=== PATIENT | female | born 1950 | race Caucasian/White ===

== ENCOUNTER → 2017-09-29 14:42 | Outpatient (CLI) | payer MEDICARE, OTHER, SELFPAY ==
[2017-10-01 12:11] LABS: HPV Reflexed? NOT INDICATED
== END ==
PROVIDERS: Family Provider Family Medicine; PCP Family Medicine; Visit Provider Family Medicine
DX: Z01.419 Encounter for gynecological examination (general) (routine) without abnormal findings (principal)
CPT/HCPCS: 88175; G0145

== ENCOUNTER → 2018-08-31 14:22 | Outpatient (CLI) | payer MEDICARE, OTHER, SELFPAY ==
--- NOTE | 2018-08-31 15:07 | CT_ITS ---
STUDY: CT ABDOMEN AND PELVIS WITH CONTRAST REASON FOR EXAM: Female, 68 years old. 2 week history of abdominal pain and bloating. The patient has a history of breast cancer. RADIATION DOSAGE (If Supplied By Facility): CTDIvol = ( 12.84 ) mGy, DLP = ( 756.45 ) mGycm TECHNIQUE: Transaxial images were obtained from the dome of the diaphragm to the symphysis pubis with oral contrast. 100 IV/Oral Isovue 370 was administered. Sagittal and coronal images were reconstructed. Individualized dose optimization techniques were used for this CT. COMPARISON: None. FINDINGS: The visualized lung bases are unremarkable. The visualized portions of the heart are within normal limits. There is decreased attenuation of the liver consistent with steatosis. Normal gallbladder and extrahepatic biliary system. Normal spleen. Normal pancreas. Normal bilateral adrenal glands. Normal right kidney. 1.2 cm cyst in the midportion of the left kidney. Smaller cysts are also seen in the left kidney. There is a small hiatal hernia. Normal small intestine. There are multiple colonic diverticula consistent with diverticulosis. The appendix is visualized and appears normal. There is scattered atherosclerotic calcification of the abdominal aorta, without a demonstrated aneurysm. Normal inferior vena cava. Normal retroperitoneum. Normal urinary bladder. There is evidence of a 3.5 cm x 4.7 cm fat-containing mass in the right ovary. Mild degree of increased markings is seen in the surrounding fat. This may represent a teratoma. Correlation with pelvic ultrasound is recommended. There is evidence of prior bilateral tubal ligation. Normal abdominal wall. There are diffuse degenerative changes of the visualized lumbar spine. CT/Abdomen/Pelvis WITH Contrast IMPRESSION: 3.5 cm x 4.7 cm fat-containing mass in the right ovary. This may represent a teratoma. Correlation with pelvic ultrasound is recommended. Fatty infiltration of the liver. Small cysts in the left kidney. Electronically Signed: Michael Atkins, at 13:09 EDT , Service support ,
== END ==
PROVIDERS: Family Provider Family Medicine; PCP Family Medicine; Referring Provider Family Medicine; Visit Provider Family Medicine
DX: R10.9 Unspecified abdominal pain (principal)
CPT/HCPCS: 74177; Q9967

== ENCOUNTER → 2018-09-08 13:54 | Outpatient (CLI) | payer MEDICARE, OTHER, SELFPAY ==
--- NOTE | 2018-09-08 13:59 | US_ITS ---
STUDY: ULTRASOUND OF THE FEMALE PELVIS - COMPLETE REASON FOR EXAM: Female, 68 years old. Right ovarian lesion LMP: Unknown. TECHNIQUE: Transabdominal and Transvaginal TECHNICAL QUALITY: Adequate. COMPARISON: CT scan from 08/31/2018 FINDINGS: The uterus is anteverted and is in a midline position. The uterus measures 7.0 x 4.7 x 4.8 cm. Normal uterine cervix. The endometrium measures 3 mm in thickness, and is hyperechoic. There is no demonstrated endometrial mass. There is a 2.9 cm fibroid. I.U.D. - The patient does not have an I.U.D. The right ovary is visualized. The right ovary measures 2.1 x 1.5 x 0.9 cm. There is no right ovarian cyst or ovarian mass. There is no visualized right adnexal mass or complex lesion. There is normal arterial and normal venous vascularity. The left ovary is visualized. The left ovary measures 1.8 x 2.1 x 1.2 cm. There is no left ovarian cyst or ovarian mass. There is no visualized left adnexal mass or complex lesion. There is normal arterial and normal venous vascularity. There is no fluid in the cul-de-sac. The bladder is sonographically normal US/Pelvic (Non ) IMPRESSION: 2.9 cm mass in the posterior body of the uterus, likely represents a fibroid. Previously noted fat-containing mass in the right ovary not seen on current study. No demonstrated free fluid Electronically Signed: Graeme Upotn MD at 15:33 EDT , Service support ,
--- NOTE | 2018-09-08 14:17 | US_ITS ---
STUDY: ULTRASOUND OF THE FEMALE PELVIS - COMPLETE REASON FOR EXAM: Female, 68 years old. Right ovarian lesion LMP: Unknown. TECHNIQUE: Transabdominal and Transvaginal TECHNICAL QUALITY: Adequate. COMPARISON: CT scan from 08/31/2018 FINDINGS: The uterus is anteverted and is in a midline position. The uterus measures 7.0 x 4.7 x 4.8 cm. Normal uterine cervix. The endometrium measures 3 mm in thickness, and is hyperechoic. There is no demonstrated endometrial mass. There is a 2.9 cm fibroid. I.U.D. - The patient does not have an I.U.D. The right ovary is visualized. The right ovary measures 2.1 x 1.5 x 0.9 cm. There is no right ovarian cyst or ovarian mass. There is no visualized right adnexal mass or complex lesion. There is normal arterial and normal venous vascularity. The left ovary is visualized. The left ovary measures 1.8 x 2.1 x 1.2 cm. There is no left ovarian cyst or ovarian mass. There is no visualized left adnexal mass or complex lesion. There is normal arterial and normal venous vascularity. There is no fluid in the cul-de-sac. The bladder is sonographically normal US/Transvaginal Non- IMPRESSION: 2.9 cm mass in the posterior body of the uterus, likely represents a fibroid. Previously noted fat-containing mass in the right ovary not seen on current study. No demonstrated free fluid Electronically Signed: Graeme Upton MD at 15:33 EDT , Service support ,
== END ==
PROVIDERS: Family Provider Family Medicine; PCP Family Medicine; Referring Provider Family Medicine; Visit Provider Family Medicine
DX: N83.9 Noninflammatory disorder of ovary, fallopian tube and broad ligament, unspecified (principal)
CPT/HCPCS: 76830; 76856; 93976

== ENCOUNTER 2020-07-07 05:26 | Inpatient (IN) | payer MEDICARE, OTHER, SELFPAY ==
[2020-07-07] VITALS (27 sets, daily range): BP systolic 102–163; BP diastolic 52–121; PULSE 79–95; RESP 11–22; TEMP 36–36.6; O2SAT 94–99; BMI 27.6; BMI 30.4; BMI 30.5
--- NOTE | 2020-07-07 05:40 | EKG12_ITS ---
Test Reason : CP Blood Pressure : / mmHG Vent. Rate : 087 BPM Atrial Rate : 087 BPM P-R Int : 192 ms QRS Dur : 074 ms QT Int : 394 ms P-R-T Axes : 033 -21 068 degrees QTc Int : 474 ms Normal sinus rhythm Minimal voltage criteria for LVH, may be normal variant T wave abnormality, consider anterior ischemia Abnormal ECG Confirmed by JESSY RODRIGUEZ, FREDDY ([id number]), editor at large OFE BLACKMAN ([id number]) on 07/09/2020 11:30:03 AM Referred By: Lupe Downey Confirmed By:FREDDY JIMÉNEZ MD
--- NOTE | 2020-07-07 05:41 | ED.DCSUM_ITS ---
History of Present Illness Chief Complaint: Chest Pain Informant: Patient Onset: Days - Worse this morning Current Severity: - - Resolved Maximum Severity: Moderate Narrative: Patient presents secondary to chest pain. Patient states has been having intermittent chest pain for the past couple of days. She initially was taking omeprazole and thought that was helping. This morning she was awoken from sleep with spasm in the center portion of her chest with radiation into her back. She took one of her husbands nitroglycerin and that resolved her pain. Patient denies shortness of breath or diaphoresis. Patient does have history of hypertension, high cholesterol, diabetes. She has family history of heart disease. She has never had a stress test or heart cath. - Past Medical History (1) Hypertension Status: Chronic (2) High cholesterol Status: Chronic (3) Diabetes Status: Chronic Past Medical History - Allergies and Home Meds Allergies/Adverse Reactions: Allergies atorvastatin [From Lipitor] Adverse Reaction (Mild, Verified 07/07/20 05:30) nausea lovastatin Adverse Reaction (Verified 07/07/20 05:30) nausea rosuvastatin [From Crestor] Adverse Reaction (Verified 07/07/20 05:30) nausea simvastatin [Zocor] Adverse Reaction (Verified 07/07/20 05:30) nausea Primary Care Physician: Karin Burns MD [Primary Care Provider] - Lives: Spouse/ Significant Other Smoking Status: Never smoker Review of Systems General: Denies: Chills, Fever Eyes: Denies: Visual changes - bilaterally ENT: Denies: Bilateral ear pain, Sore throat Cardiovascular: Reports: Chest pain Respiratory: Denies: Dyspnea, Cough Gastrointestinal: Denies: Abdominal pain, Nausea, Vomiting, Diarrhea Genitourinary: Denies: Dysuria Musculoskeletal: Denies: Swelling, Extremity Pain Skin: Denies: Rash Neurological: Denies: Headache Hematologic: Denies: Easy bruising, Easy bleeding Allergy: Denies: Uticaria Physical Exam Vital Signs/Narrative: Vital Signs Temp Pulse Resp BP Pulse Ox 07/07/20 05:27 96.8 F L 83 18 163/78 H 97 Inital Vital Signs reviewed: Yes General: Well nourished, Well developed Head: Normocephalic ENT: Moist mucous membranes Neck: Supple Cardiovascular: Regular rate, Regular rhythm Respiratory: No distress, CTA bilaterally, Chest nontender Abdomen: Soft, Nontender Extremities: Nontender Skin: Normal color, No rash Neurological: Alert, Oriented x3 Psychological: Normal affect Diagnostic/Tx/Re-eval Chest X-Ray - ED: 1 View, Read by ED Physician, Normal, Heart, Lungs, Mediastinum Impressions Chest X-Ray 07/07/20 05:50 IMPRESSION: Heterogeneous bilateral basilar airspace disease suggests multifocal pneumonia. Electronically Signed: Natalie Kaye MD at 6:12 EST , Service support , 07/07/20 05:50 Chest 1 View (Portable) [RAD] Stat Laboratory Results 07/07/20 07/07/20 05:33 05:33 WBC 7.5 RBC 4.88 Hgb 14.2 Hct 43.7 MCV 89.5 MCH 29.1 MCHC 32.5 RDW Std Deviation 40.0 RDW Coeff of Aaron 12.2 Plt Count 225 MPV 10.5 Immature Gran % (Auto) 0.300 Neut % (Auto) 51.7 Lymph % (Auto) 36.5 [place] % (Auto) 7.7 Eos % (Auto) 3.3 Baso % (Auto) 0.5 Absolute Neuts (auto) 3.9 Absolute Lymphs (auto) 2.75 Nucleated RBC % 0 Sodium 133 L Potassium 3.6 Chloride 96 L Carbon Dioxide 32.0 Anion Gap 5 BUN 23 H Creatinine 0.97 Estim Creat Clear Calc 42.47 Est GFR (MDRD) Af Amer 73 Est GFR (MDRD) Non-Af 60 BUN/Creatinine Ratio 23.6 H Glucose 328 H Calcium 9.6 Troponin I 0.556 H - EKG Initial EKG Interpretation: Sinus Rhythm - Sinus 87. Mild biphasic T waves are noted in lead V2 and V3. Q waves are noted in leads III, aVF, and V1. No old studies are available for comparison. - Medical Decision Making Patient had taken 1 baby aspirin prior to bed and was given 3 additional baby as pirin here. Patient remained chest pain-free while in the emergency room. Portable chest x- ray per my interpretation reveals no significant findings. Radiologist read is for possible multifocal pneumonia. Patient has had no cough, shortness of breath, or elevated white count. Covid swab will be sent. Blood work does reveal elevated troponin at 0.556. In light of this I did speak with Dr. Downey, on-call for cardiology. The EKG was sent to him for review. He states that because the patient is chest pain-free currently he will not take her to the [facility] immediately. He would like her admitted to the ICU with a heparin drip, aspirin, and Plavix. Patient has an allergy to statins and cannot take those. Hospitalist is on page. Addendum: While still in the emergency room patient stated she was started to get some chest pressure back. She is rating her pain at a 2. 1 sublingual nitro is ordered. Repeat EKG at this time shows sinus rhythm at 85 bpm. This EKG was also sent to Dr. Gutierrez. Because the patient is having recurrent pain he will call in the [facility] team and patient will go from here to the [facility]. - Critical Care Time Critical care time (excluding procedures): 30-74 minutes ED Disposition - Plan for ED Patient: Disposition: Acute Care Hospital [facility] Diagnosis: Chest pain, Elevated troponin Referrals: Karin Burns MD [Primary Care Provider] -
[2020-07-07] MEDS: Aspirin 81 MG TAB.CHEW 243 MG PO (05:44)
[2020-07-07 05:46] LABS: Absolute Lymphocyte Count 2.75 X10^3/uL (0.83-4.51); Absolute Neutrophil Count 3.9 X10^3/uL (2.0-7.7); Basophil# 0.04 X10^3/uL; Basophil% 0.5 % (0-1); Eosinophil# 0.25 X10^3/uL; Eosinophils% 3.3 % (0-5); Hematocrit 43.7 % (37-47); Hemoglobin 14.2 g/dL (12.0-15.0); Lymphocyte # 2.75 X10^3/ul (4.0); Lymphocyte % 36.5 % (19-41); Mean Corp Hgb Conc 32.5 g/dL (32-36); Mean Corpuscular Hgb 29.1 pg (27.0-32.0); Mean Corpuscular Volume 89.5 fL (81-99); Mean Platelet Vol. 10.5 fl (6.2-12.0); Monocyte# 0.58 X10^3/uL; Monocyte% 7.7 % (0-10); NRBC Flagged by Analyzer 0 % (0-5); Neutrophil # 3.89 X10^3/uL (2.7-7.7); Neutrophil % 51.7 % (47-70); Platelet Count 225 K/mm3 (150-450); RBC Distribution Width CV 12.2 % (11.6-14.6); Red Blood Count 4.88 M/mm3 (4.2-5.4); White Blood Count 7.5 K/mm3 (4.4-11.0)
--- NOTE | 2020-07-07 05:50 | RAD_ITS ---
STUDY: X-RAY CHEST REASON FOR EXAM: Female, 69 years old patient with chest pain. TECHNIQUE: Single AP portable view of the chest. COMPARISON: Prior comparable comparison studies are not available for review at this time. FINDINGS: Cardiac monitoring leads are present. The lungs are underexpanded. There appear to be bilateral heterogeneous airspace consolidations suggesting pneumonia. There is no demonstrated pleural abnormality. Normal size heart. Normal mediastinum and jose. Normal visualized pulmonary arteries. There is atherosclerotic calcification of the aortic arch with tortuosity. Normal visualized thoracic spine. Normal visualized ribs, clavicles, and shoulders. There is no demonstrated abnormality of the visualized soft tissue structures of the upper abdomen. RAD/Chest 1 View (Portable) IMPRESSION: Heterogeneous bilateral basilar airspace disease suggests multifocal pneumonia. Electronically Signed: Natalie Kaye MD at 6:12 EST , Service support ,
[2020-07-07 06:00] LABS: Anion Gap 5 (5-15); BUN 23 mg/dL (7-18); BUN/Creat Ratio 23.6 RATIO (10-20); Calcium,Total 9.6 mg/dL (8.5-10.1); Chloride 96 mmol/L (98-107); Creatinine, Serum 0.97 mg/dL (0.55-1.02); EST Glomerular Filtration Rate 60 mL/min (>60); Est Glom Filt Rate - Afr Amer 73 mL/min (>60); Estimated Creatinine Clearance 42.47 ml/min; Glucose 328 mg/dL (74-106); Potassium 3.6 mmol/L (3.5-5.1); Sodium Level 133 mmol/L (136-145)
[2020-07-07] MEDS: Clopidogrel Bisulfate 300 MG Tablet PO ×2 (06:21→07:32)
[2020-07-07 06:28] LABS: Partial Thromboplast Time 28.7 Seconds (24.1-36.2)
[2020-07-07] MEDS: HEPARIN/D5w 25,000 UNITS 25,000 UNITS/250 ML IV.SOLN. 0.1 UNITS IV (06:33)
[2020-07-07] MEDS: Heparin Injection (Vial) 5,000 UNIT/ML VIAL 4000 UNIT IV (06:33)
--- NOTE | 2020-07-07 06:36 | NURSING ---
ICU CP, ELEVATED TROP DR SOLIS
--- NOTE | 2020-07-07 06:50 | EKG12_ITS ---
Test Reason : REPEAT Blood Pressure : / mmHG Vent. Rate : 085 BPM Atrial Rate : 085 BPM P-R Int : 202 ms QRS Dur : 070 ms QT Int : 374 ms P-R-T Axes : 031 -25 079 degrees QTc Int : 445 ms Normal sinus rhythm Possible Left atrial enlargement Left ventricular hypertrophy Septal infarct , age undetermined Inferior infarct , age undetermined Abnormal ECG Confirmed by JESSY RODRIGUEZ, FREDDY ([id number]), research editor OFE BLACKMAN ([id number]) on 07/09/2020 11:30:38 AM Referred By: Lupe Downey Confirmed By:FREDDY JIMÉNEZ MD
[2020-07-07] MEDS: Nitroglycerin SL (ED/IMG/CATH) 0.4 MG TABLET SUBLINGUAL (07:08)
--- NOTE | 2020-07-07 07:09 | HP.PCM_ITS ---
Problem List (1) Non-ST elevation AR (NSTEMI) Status: Acute (2) Chest pain Status: Acute (3) Diabetes Status: Chronic (4) High cholesterol Status: Chronic (5) Hypertension Status: Chronic History of Present Illness Date of Admission: 07/07/20 Chief Complaint: Chest pain The patient is a 69 year old F with a significant history of hypertension; diabetes mellitus; hyperlipidemia who presents to the emergency department with excruciating substernal chest pain that woke her up from her sleep. Her chest pain began on the same day of presentation. She described the chest pain as heaviness. She took one of her 's nitroglycerin pills and that resolved her chest pain. Her chest pain radiated to her back. She denies any aggravating factors to the pain. She denies any nausea, vomiting, diaphoresis or shortness of breath. She report that her chest pain has been going on for 2 to 3 days; and she was getting relief from Prilosec. At emergency department EKG showed biphasic T waves in leads V1 and V2. Also troponin was elevated. Emergency department doctor discussed the case with cardiology. The plan was to consider a cardiac cath on 07/08/2020. However patient chest pain re-occurred. A repeat EKG was done. Nitroglycerin paste was ordered. Cardiology was contacted again and the plan is to take patient to the cardiac cath right away. Past Medical History Past Medical History (Chronic Problems): Chronic Problems Hypertension (Chronic) High cholesterol (Chronic) Diabetes (Chronic) Allergies atorvastatin [From Lipitor] Adverse Reaction (Mild, Verified 07/07/20 05:30) nausea lovastatin Adverse Reaction (Verified 07/07/20 05:30) nausea rosuvastatin [From Crestor] Adverse Reaction (Verified 07/07/20 05:30) nausea simvastatin [Zocor] Adverse Reaction (Verified 07/07/20 05:30) nausea Home Medications: Ambulatory Orders Medication Instructions Recorded Aspirin [Aspirin, Baby] 81 mg PO DAILY@0800 10/24/13 Citalopram [Celexa] 20 mg PO DAILY 10/24/13 Hydrochlorothiazide 25 mg PO DAILY 10/24/13 Insulin Glargine [Lantus SoloStar 50 units SC QHS 10/24/13 Pen] Lisinopril [Zestril] 5 mg PO DAILY 10/24/13 Insulin Lispro [Humalog] 25 unit SQ DAILY 07/07/20 Surgical History: - - Lumpectomy of breast Lives: Spouse/ Significant Other Smoking Status: Never smoker - *Family History Maternal History Items: Heart Disease, Hypertension Paternal History Items: - - Arthritis Review of Systems Constitutional: Denies: Chills, Fever, Weight Change HEENT: Denies: Head Aches, Sinus Congestion, Sinus Drainage Cardiovascular: Reports: Chest Pain. Denies: Palpitations Respiratory: Denies: Cough, Shortness of breath at rest, Sputum production Gastrointestinal: Denies: Abdominal Pain, Nausea, Vomiting Genitourinary: Denies: Dysuria Musculoskeletal: Reports: Back Pain. Denies: Joint Pain, Joint Tenderness Skin: Denies: Rash, Wounds Neurological: Denies: Numbness, Tingling, Focal weakness Psychiatric: Denies: Anxiety, Depression, Homicidal Ideations, Suicidal Ideations Hematologic/ Lymphatic: Denies: Easy Bruising, Easy Bleeding VTE Information - Inpt Only VTE Present on Admission: No VTE Mechan Device Prophylaxis: None VTE Pharm Prophylaxis ordered?: No Reason prophylaxis not ordered:: Treatment Not Indicated - Given Heparin bolus and started on heparin drip for non-STEMI at the ED. Patient Problems: Active and Suspected Problems Chest pain (Acute) Non-ST elevation AR (NSTEMI) (Acute) - Physical Exam Vitals/I&O's: Vital Signs Temp Pulse Resp BP Pulse Ox 96.8 F L 83 18 163/78 H 97 07/07/20 05:27 07/07/20 05:27 07/07/20 05:27 07/07/20 05:27 07/07/20 05:27 Oxygen Delivery Method Room Air Weight: 66.2 kg Body Mass Index (BMI) 27.6 General: Alert, Oriented x3, Cooperative HEENT: Atraumatic, PERRLA, EOMI, Normocephalic Neck: Supple, No JVD, Negative Carotid Bruits Lungs: Clear to auscultation, Normal air movement Cardiovascular: Regular rate, Normal S1, Normal S2, No murmurs Abdomen: Bowel Sounds Present, Soft, Non Tender Extremities: No edema, Capillary Refill Less than 3 Seconds Skin: No rashes, No breakdown Musculoskeletal: No Tenderness to Palpation of Joints or Extremities Neurological: Cranial nerves II-XII grossly intact Psych/Mental Status: Normal Affect, Appropriate Microbiology Past 72 Hours 07/07/20 06:17 Mucosa - Nose SARS-CoV-2 Antigen (Rapid) - Final Laboratory Results 07/07/20 05:33: WBC 7.5, RBC 4.88, Hgb 14.2, Hct 43.7, MCV 89.5, MCH 29.1, MCHC 32.5, RDW Std Deviation 40.0, RDW Coeff of Aaron 12.2, Plt Count 225, MPV 10.5, Immature Gran % (Auto) 0.300, Neut % (Auto) 51.7, Lymph % (Auto) 36.5, [place] % (Auto) 7.7, Eos % (Auto) 3.3, Baso % (Auto) 0.5, Absolute Neuts (auto) 3.9, Absolute Lymphs (auto) 2.75, Nucleated RBC % 0 07/07/20 05:33: Sodium 133 L, Potassium 3.6, Chloride 96 L, Carbon Dioxide 32.0, Anion Gap 5, BUN 23 H, Creatinine 0.97, Estim Creat Clear Calc 42.47, Est GFR (MDRD) Af Amer 73, Est GFR (MDRD) Non-Af 60, BUN/Creatinine Ratio 23.6 H, Glucose 328 H, Calcium 9.6, Troponin I 0.556 H 07/07/20 05:33: APTT 28.7 Current Medications Heparin Sodium (Porcine) (Heparin Injection (Vial) 5,000 Unit/Ml Vial) 0 unit IV UD PRN; Protocol PRN Reason: dose adjustment Heparin Sodium/Dextrose () 25,000 units in 250 mls @ 8 mls/hr IV .[id number] [facility]; Protocol Last Admin: 07/07/20 06:33 Dose: 8 units/hr, 0.1 mls/hr Documented by: Assessment/Plan All Active Problems Chest pain (Acute) Non-ST elevation AR (NSTEMI) (Acute) The patient is a 69 year old F with a significant history of hypertension; diabetes mellitus; hyperlipidemia who presents to the emergency department with excruciating substernal chest pain that woke her up from her sleep; resolved with nitroglycerin but re-occurred at the emergency department and with elevated troponin. Non-STEMI Received aspirin to 243 mg at emergency department. Plavix loading dose; heparin bolus and heparin drip was initiated at the emergency department.. Daily baby aspirin continued. Plavix 75 mg daily ordered. Patient is allergic to statins. She report that she has not tolerated many other antilipidemic medications. Per conversation with emergent department doctor and cardiology patient will be sent to [facility]. Trend troponin. Chest x-ray was interpreted by radiologist as heterogeneous bilateral basilar airspace disease suggesting multifocal pneumonia. Actual CXR image interpreted by me showed mild infiltrate at right middle lobes with right heart border not enhancing. Covid swab ordered at the emergency department. Patient symptomatology does not look like Covid. Actual EKG tracing was independently visualized. EKG tracing showed biphasic T waves in V1 and V2 SL NTG 0.4 mg prn as needed for chest pain ordered Morphine as needed for pain ordered We will check lipid panel. Serial cardiac enzymes ordered Stat EKG as needed for chest pain Cardiology consult. Hypertension Blood pressure is not within goal Hydrochlorothiazide and lisinopril continued Trend blood pressure and adjust blood pressure medications. Diabetes mellitus Patient with hyperglycemia on presentation Basal insulin continued. Prandial insulin adjusted Accu-Chek [facility] with correction scale insulin ordered. Depression/anxiety Celexa continued DVT prophylaxis. Not indicated since patient received heparin bolus and is on heparin drip. Inpatient E&M: [id number] Init Hosp L3
[2020-07-07] MEDS: Nitroglycerin Oint 1 INCH PACKET TD (07:10)
--- NOTE | 2020-07-07 08:13 | ED.RN ---
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
--- NOTE | 2020-07-07 09:25 | PCI.CARDCATH ---
PCI Cardiac Cath Report PCI Report: Procedure performed; 1. Successful percutaneous core intervention of high-grade 95% stenosis of mid LAD with ANGELA II flow with predilatation and placement of Drug-eluting stent 3 x 20 mm, Synergy, postdilated with 3 x 15 mm NC balloon. 2. Post PCI to the mid LAD with reduction of stenosis to 0% and achievement of ANGELA-3 flow. 3. Measurement of LVEDP /LVG 4. Moderate sedation. Preprocedure diagnosis; 69-year-old patient who had a chronic history of chest pain more than 4 weeks, today the symptoms get worse and wake up around 1:00 in the morning when she took the nitroglycerin of her relieve her symptoms and came to the ER. Which she was seen by the ER physician and electrocardiogram showed evidence of Q waves in the anterior lead as well as old Q waves in the inferior lead. She was given heparin nitroglycerin and Plavix loaded with the total of 600 mg in the Lead Pharmacy Technician and symptoms of chest pain relieved however she developed a recurrent symptoms of chest pain with a clinical diagnosis of post IA angina/non-ST elevation IA. Patient had history of diabetes, her had a history of CAD with multiple coronary artery stent and he follow-up with his primary circuit walker Dr. Shields. Based on her clinical presentation and recurrent episode of chest pain while in the ER I decided to bring her to the Lead Pharmacy Technician to evaluate with cardiac catheterization and based for the decision on the result. Moderate sedation; Patient was given intravenous Versed intravenous fentanyl in the Lead Pharmacy Technician and she was very comfortable. By time she came to the Lead Pharmacy Technician her symptoms of chest pain improved significantly. Procedure in detail; Consent risk-benefit of procedure explained in detail to the patient she elected to proceed informed consent obtained. Diagnostic catheter used; 1. Placement of a 6 Bulgarian sheath in the right radial artery 2. 5 Bulgarian, JL 3 3. 5 Bulgarian JR4 4. 5 Bulgarian pigtail catheter. Under local anesthetic infiltrated in the right radial artery using lidocaine, 6 Bulgarian sheath placed in the right radial artery, proceed with 5 Bulgarian JL 3.5 advanced to the ascending aorta engaged the left coronary ostium and multiple views of the left coronary system obtained including BAHRAINI, RAI cranial and caudal views Following this catheter exchange poor 5 Bulgarian JL4 catheter and selective angiographic view of records to obtain Following this all angiographic views were restarted and we proceed with interventional plan. Interventional equipment and plan;. 1. 6 Bulgarian EBU 3.5 2. 0.014 run-through wire 3. 2 x 15 mm regular balloon 4. Drug-eluting stent 3 x 20 mm Synergy line. 5. Postdilatation to the mid LAD using 3 x 15 mm NC balloon We will proceed with the guide catheter, engaged the left coronary ostium, then we crossed the lesion in the mid LAD using a run-through wire Followed by predilatation using 2 x 15 mm balloon, followed by placement of a drug-eluting stent 3 x 20 mm and postdilated by 3 x 15 mm NC balloon and achievement of excellent result With reduction of stenosis from 95% in the mid LAD to 0% An improvement in the ANGELA flow from ANGELA II to ANGELA-3. Hemodynamic; 1. LV systolic function is preserved With ejection fraction of around 55% 2. LVEDP is measured around 15 mmHg, no gradient across aortic valve and no mitral regurgitation noted. Coronary angiography; #1 left main coronary artery is normal angiographically it is a large vessel bifurcating into LAD and the left circumflex 2. Mid LAD had a high-grade 95% stenosis, LAD is a large vessel reaching all the way to the apex, has a small D1 and D2 branches. Following the procedure, post PCI reduction of stenosis to 0% and ANGELA-3 flow. 3. Left circumflex artery is a large dominant vessel, with the OM1 is small vessel, OM 2 is a large tortuous vessel, distal left circumflex had 90% a small tapering vessel. 4. RCA small nondominant with 2 segmental lesions proximally around 80% was followed by 90% lesion small artery. Conclusion and recommendations; 1. Patient with non-STEMI with post IA angina with successful PCI of the culprit vessel which is mid LAD This patient has an old inferior IA with Q waves noted in the inferior lead and nondominant small RCA with 2 segmental lesions and also had distal left circumflex a small vessel atherosclerosis The culprit vessel in this patient is a mid LAD which underwent PCI and successful stenting of the mid LAD Patient known to have history of diabetes recommendation would be to continue medical treatment 1. Dual antiplatelet therapy with Plavix/aspirin patient loaded with 600 mg of Plavix will continue 75 mg of Plavix and low-dose aspirin 81 mg for 1 year if no continuation And then to continue on low-dose aspirin indefinitely 2. Patient is diabetic and will start on atorvastatin 40 mg once a day Will start on carvedilol 3.125 mg twice a day Lisinopril 5 mg once a day Continue medical therapy Patient will be admitted to the ICU over the night and if she remains stable she can be transferred to PCU and to follow-up with cardiology for continuity of cardiac care plan Her has been seeing him following by Dr. Shields and I would recommend she follow-up with Dr. Shields with medical management. Patient also will be scheduled for cardiac rehab program phase 1. Lupe Downey MD,FACC,[facility] transit survey worker
--- NOTE | 2020-07-07 09:35 | EKG12_ITS ---
Test Reason : POST STENT Blood Pressure : / mmHG Vent. Rate : 076 BPM Atrial Rate : 076 BPM P-R Int : 200 ms QRS Dur : 090 ms QT Int : 446 ms P-R-T Axes : 031 -09 076 degrees QTc Int : 501 ms Normal sinus rhythm T wave abnormality, consider anterior ischemia Prolonged QT Abnormal ECG When compared with ECG of 07-JUL-2020 06:52, MANUAL COMPARISON REQUIRED, DATA IS UNCONFIRMED Confirmed by JESSY RODRIGUEZ, FREDDY ([id number]), movie editor OFE BLACKMAN ([id number]) on 07/09/2020 11:40:23 AM Referred By: Lupe Downey Confirmed By:FREDDY JIMÉNEZ MD
[2020-07-07] MEDS: 0.9% Normal Saline 1,000 ML 75 ML IV (10:00)
[2020-07-07 11:50] LABS: Bedside Glucose 280 mg/dL (70-110)
[2020-07-07] MEDS: Acetaminophen 325 MG Tablet 650 MG PO (12:29)
[2020-07-07] MEDS: Lisinopril 5 MG Tablet PO (12:34)
[2020-07-07] MEDS: Carvedilol 3.125 MG TABLET PO ×2 (12:34→21:30)
[2020-07-07] MEDS: hydroCHLOROthiazide 25 MG Tablet PO (12:35)
[2020-07-07] MEDS: Insulin Lispro 100 UNIT/ML INSULN.PEN 10 UNIT SC ×2 (12:37→17:15)
[2020-07-07] MEDS: Insulin Lispro 100 UNIT/ML INSULN.PEN SC ×3 (12:38→21:26)
--- NOTE | 2020-07-07 12:40 | PCM.PN.BLA ---
Progress Note Patient was seen and examined. She had PCI today to the mid LAD. She denied any more chest pain. Vitals reviewed; stable. Medical chart reviewed. We will continue to monitor in the ICU per cardiology recommendation STROKE Vital Signs/Narrative: Vital Signs Temp Pulse Resp BP Pulse Ox 07/07/20 09:30 97.0 F L 85 22 H 104/55 L 94
[2020-07-07 17:20] LABS: Bedside Glucose 174 mg/dL (70-110)
[2020-07-07] MEDS: Atorvastatin Calcium 40 MG Tablet PO (21:30)
[2020-07-07] MEDS: Aspirin E.C. 81 MG Tablet PO (21:30)
[2020-07-07] MEDS: Citalopram 20 MG Tablet PO (21:30)
[2020-07-07] MEDS: MELATONIN 3 MG TABLET PO (23:21)
[2020-07-07 23:26] LABS: Bedside Glucose 186 mg/dL (70-110)
[2020-07-08] VITALS (15 sets, daily range): BP systolic 114–148; BP diastolic 53–75; PULSE 78–89; RESP 12–19; TEMP 36.3–36.4; O2SAT 93–96
[2020-07-08 05:18] LABS: Absolute Lymphocyte Count 2.25 X10^3/uL (0.83-4.51); Absolute Neutrophil Count 4.3 X10^3/uL (2.0-7.7); Basophil# 0.05 X10^3/uL; Basophil% 0.7 % (0-1); Eosinophil# 0.31 X10^3/uL; Eosinophils% 4.1 % (0-5); Hematocrit 39.2 % (37-47); Lymphocyte # 2.25 X10^3/ul (4.0); Lymphocyte % 29.9 % (19-41); Mean Corp Hgb Conc 33.2 g/dL (32-36); Mean Corpuscular Hgb 29.3 pg (27.0-32.0); Mean Corpuscular Volume 88.5 fL (81-99); Mean Platelet Vol. 10.5 fl (6.2-12.0); Monocyte# 0.57 X10^3/uL; Monocyte% 7.6 % (0-10); NRBC Flagged by Analyzer 0 % (0-5); Neutrophil # 4.33 X10^3/uL (2.7-7.7); Neutrophil % 57.4 % (47-70); Platelet Count 195 K/mm3 (150-450); RBC Distribution Width CV 12.2 % (11.6-14.6); RBC Distribution Width SD 39.8 fl (35.1-43.9); Red Blood Count 4.43 M/mm3 (4.2-5.4); White Blood Count 7.5 K/mm3 (4.4-11.0)
[2020-07-08 05:43] LABS: ALB/GLOB Ratio 0.9 RATIO (0.9-2.4); AST(SGOT) 19 U/L (15-37); Alanine Aminotransfer ALT/SGPT 21 U/L (13-56); Albumin, Serum 3.3 g/dL (3.2-5.0); Alkaline Phosphatase 70 U/L (45-117); Anion Gap 7 (5-15); BUN 15 mg/dL (7-18); Calcium,Total 9.1 mg/dL (8.5-10.1); Chloride 104 mmol/L (98-107); Cholesterol 253 mg/dL (200); Creatinine, Serum 0.75 mg/dL (0.55-1.02); EST Glomerular Filtration Rate 82 mL/min (>60); Est Glom Filt Rate - Afr Amer 99 mL/min (>60); Estimated Creatinine Clearance 41.19 ml/min; Globulin 3.7 g/dL (2.2-4.2); Glucose 160 mg/dL (74-106); High Density Lipoprotein 33 mg/dL; Potassium 3.3 mmol/L (3.5-5.1); Sodium Level 138 mmol/L (136-145); Triglycerides 283 mg/dL; Very Low Density Lipoprotein 57 mg/dL (5-40)
[2020-07-08 06:50] LABS: Bedside Glucose 142 mg/dL (70-110)
--- NOTE | 2020-07-08 07:45 | PN.CARD_ITS ---
Subjectve: Patient seen and evaluated. Appears to be doing well. No complaints this morning. Objective: Vital Signs Temp Pulse Resp BP Pulse Ox 97.6 F L 81 14 144/75 H 96 07/08/20 04:00 07/08/20 07:00 07/08/20 07:00 07/08/20 07:00 07/08/20 07:03 Oxygen Flow Rate (L/min) 2 Oxygen Delivery Method Room Air Weight: 157 lb 10.088 oz Body Mass Index (BMI) 30.4 Intake and Output for Last 24 Hours 07/06/20 07/07/20 07/08/20 23:59 23:59 23:59 Intake Total 1240 / 1720 600 / 600 Output Total 675 / 1125 950 / 950 Balance 565 / 595 -350 / -350 General: Awake, Alert, Oriented x 3 HEENT: PERRL, EOMI, Sclera Non Icteric Neck: Supple, Good ROM, No Lymph Node Enlargement Lungs: Clear to auscultation Cardiovascular: Regular Rhythm, Normal S1, Normal S2, No Murmurs, No Rubs, No Gallops 07/07/20 10:30: Troponin I 0.693 H* 07/07/20 13:48: Troponin I 0.715 H* 07/08/20 05:00: WBC 7.5, RBC 4.43, Hgb 13.0, Hct 39.2, MCV 88.5, MCH 29.3, MCHC 33.2, Plt Count 195, MPV 10.5, Immature Gran % (Auto) 0.300, Neut % (Auto) 57.4, Lymph % (Auto) 29.9, Edwards % (Auto) 7.6, Eos % (Auto) 4.1, Baso % (Auto) 0.7, Absolute Neuts (auto) 4.3, Nucleated RBC % 0 07/08/20 05:00: Sodium 138, Potassium 3.3 L, Chloride 104, Carbon Dioxide 27.0, Anion Gap 7, BUN 15, Creatinine 0.75, Est GFR (MDRD) Af Amer 99, Est GFR (MDRD) Non-Af 82, BUN/Creatinine Ratio 20.0, Glucose 160 H, Calcium 9.1, Total Bilirubin 0.40, Triglycerides 283 H, Cholesterol 253 H, LDL Cholesterol 163 H, VLDL Cholesterol 57 H, HDL Cholesterol 33 L Rhythm: EKG: Normal sinus rhythm with T wave inversions noted anteriorly ECHO: Stress Test: Cardiac Cath: PCI: CT Surgery: Holter monitor: EPS: PPM: CXR: Chest CT Scan: Medical Necessity - Tobacco Use Smoking Status: Never smoker Assessment/Plan 1. Status post non-ST elevation myocardial infarction Successful percutaneous intervention of high-grade 95% stenosis of mid LAD with ANGELA II flow with predilatation and placement of Drug-eluting stent 3 x 20 mm, Synergy, postdilated with 3 x 15 mm NC balloon. Post PCI to the mid LAD with reduction of stenosis to 0% and achievement of ANGELA-3 flow. Patient can be transferred to the progressive care unit * Obtain echocardiogram to assess left ventricular function 2. Hypertension * Continue current medical therapy * 3. Hyperlipidemia * We will continue with aggressive risk factor modification.
--- NOTE | 2020-07-08 07:50 | ECHOD_ITS ---
Reason For Study: CAD/ASHD Procedure This was a 2D Doppler, Color Flow transthoracic echocardiogram. Exam performed portable in ICU/CCU. Left Ventricle Normal LV size. Moderate concentric left ventricular hypertrophy. Left ventricular systolic function is normal. The estimated ejection fraction is 65 %. Stage 1 diastolic dysfunction. No regional wall motion abnormalities noted. Right Ventricle Normal RV size. Normal systolic function. Atria Normal left atrium. Normal right atrium. Mitral Valve There is mild mitral annular calcification. Trivial eccentric mitral valve insufficiency. Tricuspid Valve Normal tricuspid valve. Mild (1+) tricuspid valve insufficiency. Pulmonary artery systolic pressure is 24 mmHg. Aortic Valve Normal aortic valve. Pulmonic Valve Normal pulmonic valve. Great Vessels Normal aortic root. The pulmonary artery is normal size. Normal inferior vena cava. Pericardium/Pleural No pericardial effusion. MMode/2D Measurements & Calculations LVIDd: 3.8 cm IVSd: 1.3 cm Ao root diam: 3.4 cm LVIDs: 2.4 cm LVPWd: 1.3 cm RVDd: 3.0 cm FS: 36.7 % LAV(MOD-bp): 36.0 ml LVAd ap4: 21.0 cm2 SV(MOD-sp4): 33.7 ml LAV(MOD-bp) Indexed: 21.1 ml/m2 EDV(MOD-sp4): 52.5 ml LAV(MOD-sp2): 31.9 ml EDV(sp4-el): 54.5 ml LAV(MOD-sp4): 39.0 ml LVAs ap4: 11.4 cm2 ESV(MOD-sp4): 18.7 ml ESV(sp4-el): 18.5 ml EF(MOD-sp4): 64.3 % EF(sp4-el): 66.0 % SV(sp4-el): 36.0 ml LA A4 area: 14.7 cm2 RA A4 area: 9.5 cm2 Doppler Measurements & Calculations MV E max aime: 96.0 cm/sec Lat Peak E' Aime: 5.7 cm/sec Med Peak E' Aime: 4.4 cm/sec MV A max aime: 126.2 cm/sec E/E' lat: 16.9 E/E' med: 21.9 MV E/A: 0.76 Ao V2 max: 151.0 cm/sec LV V1 max: 109.2 cm/sec PA V2 max: 82.2 cm/sec Ao max P.1 mmHg LV V1 max P.8 mmHg Ao V2 mean: 113.2 cm/sec Ao mean P.4 mmHg Ao V2 VTI: 28.3 cm TR max aime: 233.4 cm/sec TR max P.8 mmHg Interpretation Summary Normal LV size. Moderate concentric left ventricular hypertrophy. Left ventricular systolic function is normal. The estimated ejection fraction is 65 %. Stage 1 diastolic dysfunction. Pulmonary artery systolic pressure is 24 mmHg. Ordering Physician: Phillip Castillo Referring Physician: Karin Burns Performed By: Jammie Patel, SACHI, RVT
[2020-07-08] MEDS: Acetaminophen 325 MG Tablet 650 MG PO (08:01)
[2020-07-08] MEDS: Insulin Lispro 100 UNIT/ML INSULN.PEN 10 UNIT SC ×2 (08:49→12:01)
[2020-07-08] MEDS: Lisinopril 5 MG Tablet PO (08:50)
[2020-07-08] MEDS: hydroCHLOROthiazide 25 MG Tablet PO (08:50)
[2020-07-08] MEDS: Carvedilol 3.125 MG TABLET PO (08:50)
[2020-07-08] MEDS: Clopidogrel Bisulfate 75 MG Tablet PO (08:50)
--- NOTE | 2020-07-08 09:03 | CRPHASE1_ITS ---
Patient Communication Former Patient:: Phase II PHII Cardiac Rehab Discussed with Patient:: Yes Guide to Cardiac Rehab Given to Patient:: Yes Cardiac Rehab Facility Choice List Given to Patient:: Yes Choice Program [facility] CR PHII:: Communication Given to CR Calender Let Off Operator:: Lupe Downey Refer Phase II Cardiac Rehab:: Yes Sessions:: 36 sessions - 3 days/wk, 12 weeks Cardiac Rehabilitation Info Cardiac Rehabilitation Program Information: Cardiac Rehabilitation is important for patients like you who are recovering from a heart problem. Cardiac rehabilitation programs are recognized as integral to the continued care of the patient with coronary heart disease. The cardiac rehabilitation program is designed to optimize a patient's physical, psychological, and social functioning. Health care asst work in cardiac rehabilitation programs and assist you with getting the treatments you need to get stronger and healthier - like exercise, healthy eating habits, and medications. Cardiac rehabilitation has been show to help people with heart problems live longer and have better life enjoyment than people who do not go to cardiac rehabilitation. Please contact the Cardiac Rehabilitation Program at [facility] [place] at in two weeks if you have not heard from them.
--- NOTE | 2020-07-08 09:04 | CRPH1.INSTRU ---
General Education CAD and cardiac anatomy and function:: Patient communicates acknowledgment, Needs reinforcement Explanation of diagnoses and procedures:: Patient communicates acknowledgment, Needs reinforcement Sign/Symptoms of [place]:: Patient communicates acknowledgment, Needs reinforcement Antiplatelet therapy: Patient communicates acknowledgment, Needs reinforcement Proper use of NTG-SL: Patient communicates acknowledgment, Needs reinforcement Emergency procedures and activation of EMS: Patient communicates acknowledgment, Needs reinforcement Compliance of all prescribed medications: Patient communicates acknowledgment, Needs reinforcement Smoking Patient Nicotine/Smoking Risk Factors Are:: Never smoked Dyslipidemia Patient Dyslipidemia Risk Factors Are:: Total Cholesterol, Triglycerides, LDL Recommendations Include:: Lipid profile provided, Reviewed NCEP/ATP guidelines, Therapeutic Lifestyle Change dietary guidelines Dyslipidemia Response Code:: Patient communicates acknowledgment, Needs reinforcement Overweight/Obesity Patient Overweight/Obesity Risk Factors Are:: BMI Normal [24-29 & > 65 years old] Recommendations Include:: Weight loss of 5-10%, Reduced calorie diet, Exercise 5-7 times/week Overweight/Obesity:: Patient communicates acknowledgment, Needs reinforcement Hypertension Recommendations Include:: BP <130/80 if diabetic, DASH dietary guidelines, Decrease/maintain normal body weight Hypertension:: Patient communicates acknowledgment, Needs reinforcement Heart Disease Recommendations Include:: Educated family members of their risk, Educated family members of importance of prevention of heart disease Heart Disease Response Code:: Patient communicates acknowledgment, Needs reinforcement Diabetes Patient Diabetes Risk Factors Are:: Elevated blood sugars Recommendations Include:: Maintain fasting blood sugars 70-110 md/dL, Maintain HgbA1c of 6% or less, Monitor blood sugar as prescribed, Diabetic dietary guidelines, Decrease/maintain body weight Diabetes:: Patient communicates acknowledgment, Needs reinforcement Sedentary Patient Sedentary Risk Factors Are:: Lack of regular exercise Recommendations Include:: Aerobic exercise 5-7 times/week for 20-30 minutes continuously, Benefits of regular exercise, Discussed home walking program, Monitored Outpatient Cardiac Rehab Sedentary Response Code:: Needs reinforcement Stress Patient Stress Risk Factors Are:: Patient denies stress as a risk factor
--- NOTE | 2020-07-08 10:00 | EKG12_ITS ---
Test Reason : AM EKG Blood Pressure : / mmHG Vent. Rate : 084 BPM Atrial Rate : 084 BPM P-R Int : 196 ms QRS Dur : 086 ms QT Int : 414 ms P-R-T Axes : 023 -22 061 degrees QTc Int : 489 ms Normal sinus rhythm T wave abnormality, consider anterior ischemia Abnormal ECG When compared with ECG of 07-JUL-2020 09:45, MANUAL COMPARISON REQUIRED, DATA IS UNCONFIRMED Confirmed by JESSY RODRIGUEZ, FREDDY ([id number]), editor in chief OFE BLACKMAN ([id number]) on 07/09/2020 11:42:38 AM Referred By: Lupe Downey Confirmed By:FREDDY JIMÉNEZ MD
--- NOTE | 2020-07-08 10:56 | CASEMGMT ---
RN CM Assessment Note Introduced role of CM to patient. Demographics, PCP verified. Pt is awake and alert, able to participate in the assessment. Pt states she is independent, no care needs at home and plans to return home. Presentation: chest pain Diagnosis: NSTEMI with PCP: Dr. Burns Specialists: Dr. Castillo Insurance: [facility] Preferred Pharmacy: [facility] Prescription Benefit: yes LNOK: , Crispin Calixto Living Arrangements: Lives independently, no care needs. Tranportation: drives DME: blood glucose monitor and supplies-denies any needs with this HHC: no SNF: no Patient DC Goals:Home DC Plan: Home. Plavix ordered currently CM available for discharge planning coordination. Contact CM for any concerns/needs that may arise. Epi FALCON RN ACM
[2020-07-08 12:10] LABS: Bedside Glucose 106 mg/dL (70-110)
--- NOTE | 2020-07-08 12:50 | PCM.DC ---
- Discharge Diagnoses Current Active Problems: Current Active and Chronic Problems (Last Updated 07/08/20 @ 08:39 by Suzanne Randall) Chest pain (Acute) Non-ST elevation OR (NSTEMI) (Acute 07/07/20) You will use the following diet at home:: Calorie/Carbohydrate Controlled (specify 1200, 1400, etc) - 1800 DERREK Your food should be the consistency of: Regular Your liquids should be the consistency of: Regular/Thin Discharge Activity: Return to Normal Activity Weight Bearing Status: Full weight bearing Additional Instructions: DO NOT TAKE ALLEVE OR IBUPROFEN FOR PAIN, TAKE TYLENOL Allergies/Adverse Reactions: Allergies atorvastatin [From Lipitor] Adverse Reaction (Mild, Verified 07/07/20 05:30) nausea lovastatin Adverse Reaction (Verified 07/07/20 05:30) nausea rosuvastatin [From Crestor] Adverse Reaction (Verified 07/07/20 05:30) nausea simvastatin [Zocor] Adverse Reaction (Verified 07/07/20 05:30) nausea Medications to take at Discharge Aspirin [Aspirin, Baby] 81 mg PO QHS 10/24/13 Citalopram [Celexa] 20 mg PO QHS 10/24/13 Hydrochlorothiazide 25 mg PO DAILY 10/24/13 Insulin Glargine [Lantus SoloStar Pen] 50 units SC QHS 10/24/13 Lisinopril [Zestril] 5 mg PO DAILY 10/24/13 Aspirin E.C. [Ecotrin] 81 mg PO QHS tablet 07/08/20 Atorvastatin Calcium [Lipitor] 40 mg PO QHS #30 tab 07/08/20 Carvedilol [Coreg (Beta Demetris)] 3.125 mg PO BID #60 tab 07/08/20 Clopidogrel Bisulfate [Plavix] 75 mg PO DAILY #30 tab 07/08/20 Insulin Lispro [Humalog KwikPen] 10 unit SC BREAKFAST insuln.pen 07/08/20 Insulin Lispro [Humalog KwikPen] 10 unit SC DINNER insuln.pen 07/08/20 Insulin Lispro [Humalog KwikPen] 10 unit SC LUNCH insuln.pen 07/08/20 The following prescriptions were given: Carvedilol [Coreg (Beta Demetris)] 3.125 mg PO BID #60 tab Transmission Status: Pending to [id number] Atorvastatin Calcium [Lipitor] 40 mg PO QHS #30 tab Transmission Status: Pending to [id number] Clopidogrel Bisulfate [Plavix] 75 mg PO DAILY #30 tab Transmission Status: Pending to [id number] Primary Care Physician: Karin Burns MD [Primary Care Provider] - Please follow up with your Primary Care Physician in: IN 2 WEEKS Test Results: Test results from this visit will be discussed in further detail at your follow-up appointment, if applicable. Please Follow Up With: Phillip Castillo MD When: IN 3 WEEKS OR DIRECTED
--- NOTE | 2020-07-09 18:47 | DS.PCM_ITS ---
Discharge Date and Diagnosis - Problem List Patient Problems: Active and Suspected Problems (Last Updated 07/08/20 @ 08:39 by Suzanne Randall) Chest pain (Acute) Non-ST elevation DC (NSTEMI) (Acute 07/07/20) Date of Admission: 07/07/20 Date of Discharge: 07/08/20 - Primary Discharge Diagnosis Acute Problems: Active Problems (Last Updated 07/08/20 @ 08:39 by Suzanne Randall) #[address] elevation DC #2 occlusive coronary artery disease mid LAD #3 essential hypertension #4 hyperlipidemia - Secondary Discharge Diagnosis Chronic Problems: Chronic Problems (Last Updated 07/08/20 @ 08:39 by Suzanne Randall) Atherosclerotic heart disease of [place] coronary artery without angina pectoris (Chronic) History of coronary artery stent placement (Chronic 07/07/20) PCI-YOEL-Mid LAD w/ 3 x 20 mm Synergy Stent 07/07/2020 Type 2 diabetes mellitus (Chronic) Hyperlipidemia (Chronic) Essential (primary) hypertension (Chronic) Hospital Course and Treatment Procedures: Cardiac catheterization - With drug-eluting stent placement mid LAD Summary of Care Provided: The patient is a 69 year old F was seen in the emergency room at [facility] with a chief complaint of chest pain, work-up in the emergency room included a chest x-ray which showed bilateral basilar airspace changes suggestive of pneumonia, EKG showed a sinus rhythm at 87, there were Q waves noted to be present in leads III, aVF and V1, Covid rapid antigen test was performed which was negative, patient's troponin was elevated at 0.556. Patient remained chest pain-free in the emergency room for most of her stay but while still in the emergency room, she had some return of her chest pressure and was given 1 sublingual nitroglycerin. Cardiology was contacted and because of the recurrence of the patient's chest pain, it was decided that she would go to the [facility] from the emergency room. Patient underwent a cardiac catheterization which showed a high-grade stenosis of the mid LAD, a drug eluding stent was placed after predilation was performed. Patient's ejection fraction was 55%. Patient was admitted to ICU after her cardiac catheterization and stent placement, she remained stable in the ICU, she underwent an echocardiogram which showed an EF of 65% and no significant valvular heart disease. On 07/08/2020, patient was seen and examined: On examination she appeared in good health and spirits, she does not appear to be in any distress. Vital signs as documented. Skin warm and dry and without overt rashes. Neck without JVD, thyroid appears normal, trachea is midline, neck is supple. Lungs clear, normal air movement was noted. Heart exam notable for regular rhythm, normal sounds and absence of murmurs, rubs or gallops. Abdomen unremarkable and without evidence of organomegaly, masses, or abdominal aortic enlargement, bowel sounds are present in all 4 quadrants, no abdominal tenderness was noted. Extremities nonedematous, no cyanosis was noted, no clubbing was noted. Neuro: Cranial nerves II through XII are grossly intact, no focal motor deficits were noted, sensation to light touch and pinprick is intact, motor exam 5/5 throughout. Psych: Patient is alert and oriented x3, she does not appear anxious or depressed, she does not appear agitated. Patient was discharged home in stable condition on 07/08/2020. Patient Problems: Active and Suspected Problems (Last Updated 07/08/20 @ 08:39 by Suzanne Randall) Chest pain (Acute) Non-ST elevation DC (NSTEMI) (Acute 07/07/20) - Physical Exam Vitals/I&O's: Vital Signs Temp Pulse Resp BP Pulse Ox 97.4 F L 79 14 114/62 95 07/08/20 12:04 07/08/20 12:04 07/08/20 12:04 07/08/20 12:04 07/08/20 12:04 Oxygen Flow Rate (L/min) 2 Oxygen Delivery Method Room Air Weight: 71.5 kg Body Mass Index (BMI) 30.4 Intake and Output for Last 24 Hours 07/07/20 07/08/20 07/09/20 23:59 23:59 23:59 Intake Total 1240 / 1720 960 / 960 Output Total 675 / 1125 950 / 950 Balance 565 / 595 Microbiology Past 72 Hours 07/07/20 06:17 Mucosa - Nose SARS-CoV-2 Antigen (Rapid) - Final Discharge Activity: Return to Normal Activity Weight Bearing Status: Full weight bearing Home Medications: Medications to take at Discharge Aspirin [Aspirin, Baby] 81 mg PO QHS 10/24/13 Citalopram [Celexa] 20 mg PO QHS 10/24/13 Hydrochlorothiazide 25 mg PO DAILY 10/24/13 Insulin Glargine [Lantus SoloStar Pen] 50 units SC QHS 10/24/13 Lisinopril [Zestril] 5 mg PO DAILY 10/24/13 Aspirin E.C. [Ecotrin] 81 mg PO QHS tab 07/08/20 Atorvastatin Calcium [Lipitor] 40 mg PO QHS #30 tab 07/08/20 Carvedilol [Coreg (Beta Demetris)] 3.125 mg PO BID #60 tab 07/08/20 Clopidogrel Bisulfate [Plavix] 75 mg PO DAILY #30 tab 07/08/20 Insulin Lispro [Humalog KwikPen] 10 unit SC BREAKFAST insuln.pen 07/08/20 Insulin Lispro [Humalog KwikPen] 10 unit SC DINNER insuln.pen 07/08/20 Insulin Lispro [Humalog KwikPen] 10 unit SC LUNCH insuln.pen 07/08/20 Following Prescriptions Were Given to Patient: Carvedilol [Coreg (Beta Demetris)] 3.125 mg PO BID #60 tab Transmission Status: Received by [facility] Atorvastatin Calcium [Lipitor] 40 mg PO QHS #30 tab Transmission Status: Received by [facility] Clopidogrel Bisulfate [Plavix] 75 mg PO DAILY #30 tab Transmission Status: Received by [facility] Primary Care Physician: Karin Burns MD [Primary Care Provider] - Please follow up with your Primary Care Physician in: IN 2 WEEKS Please Follow Up With: Phillip Castillo MD When: IN 3 WEEKS OR DIRECTED Disposition: Home Minutes spent on discharge:: 32 Patient Condition:: Stable Medical Necessity - Tobacco Use Smoking Status: Never smoker Meaningful Use Info Meaningful Use Diagnoses (Choose all that apply): AMI - AMI/Post PCI/Angioplasty Aspirin given w/in 24hrs of arrival?: Yes ASA at discharge?: Yes Antiplatelet Therapy at Discharge:: Yes Statins at discharge?: Yes Geraldo/ARB at discharge?: Yes Beta Demetris at discharge?: Yes Done w/ Acute DC measure.: Yes Documented LVEF (%): 65 Inpatient E&M: 09100 Disch Hosp
== END 2020-07-08 14:05 | disposition home or self-care (01) | DRG 247 ==
LOC: ED 06:51 → ICU 07:16
PROVIDERS: Internal Medicine; Admitting Provider Hospitalist; Emergency Provider Emergency Medicine; PCP Family Medicine; Referring Provider Internal Medicine Interventional Cardiology; Visit Provider Internal Medicine
DX: I21.4 Non-ST elevation (NSTEMI) myocardial infarction (principal); I10 Essential (primary) hypertension; E11.65 Type 2 diabetes mellitus with hyperglycemia; E78.5 Hyperlipidemia, unspecified; F32.9 Major depressive disorder, single episode, unspecified; F41.9 Anxiety disorder, unspecified; I25.10 Atherosclerotic heart disease of native coronary artery without angina pectoris
CPT/HCPCS: 71045; 80048; 80053; 80061; 82962; 84484; 85025; 85730; 87426; 92928; 93005; 93306; 93458; 97802; 99152; 99153; 99285; J7030; J7040; Q9957; Q9967; A4216; C1725; C1769; C1874; C1887; C1894; C9600

== ENCOUNTER → 2020-07-10 07:53 | Outpatient (CLI) | payer MEDICARE, OTHER, SELFPAY ==
[2020-07-07 09:36] VITALS: BMI 30.4
--- NOTE | 2020-07-10 08:00 | PCM.CR.ITP ---
Diagnosis - General Information Admitting Diagnosis: NSTEMI, PCI w/coronary stents Personal Learning Style:: Written Barriers to Learning: No Barriers Stage of change r/t lifestyle modifications:: Contemplation Gave educational material for:: Treating Heart Disease, Emotions & Heart Disease, Stress Management & Relaxation, Sleep Disorders & Heart Disease, How The Heart Works, What it means to have Heart Disease, How Coronary Artery Disease is Diagnosed, Heart Procedures, What Heart Medications Do, Risk Factors & Modifications, Living an Active Life, Nutrition - Education/Goals Individual Counseling: Initial Assessment: Abnormal Cholesterol Levels, High Blood Pressure, Overweight/Obesity, Diabetes, Metabolic Syndrome (as evidenced by 3 of 5 A-E below), A. Fasting Blood Sugar >100 - 160; hBA1c 9.4, C. High Triglycerides >150 - 283, Hypertension - 163/78, Low HDL <40/Males or <50/Females - 33, Sedentary Lifestyle Cardiac Rehabilitation Goals: 1. Maintain the individual as the primary focus of care. 2. To improve the patient's quality of life. 3. Identification of cardiac risk factors and provide cardiac risk factor management. 4. Enhance the psychosocial status of the patient. 5. Reconditioning enough to allow the patient to resume customary activities. 6. Control symptoms of cardiac disease Personal Goals: Initial Assessment: Improve energy level, Participate in home exercise program, Get back to work, or to resume activities faster, Improve knowledge of cardiac disease, Improve muscle strength and endurance, Improve diet and eating habits (eat healthier), Control risk factors (learn risk factor modification) Scale for measuring improvement of personal goals: Enter appropriate number in Comments. 2 = Unchanged. 3 = Slightly Better. 4 = Moderate Improvement. 5 = Met my Goal - Diagnosis & Disease Process Outcomes/Goals: Pt IDs own risk factors & lifestyle modifications by Session 10, Verbalizes symptoms of angina & response by session 3., Pt independently manages Plan/Interventions: Assist Pt to ID & engage in lifestyle modification to reduce CVD risk, Instruct on individual risk factors, Review symptoms of angina & emergency actions, Review secondary diagnosis & identify educational needs. - Safety Referral to Physical Therapy: No Referral to [facility] Case Management: No Fall Risk Assessed:: Yes Assistive Devices:: None Exercise - Initial Assessment - Visit Date of Eval: 07/10/20 Session #:: 0 - pre-cardiac rehab eval Mets: Pre-: >5 METS for 30 minutes by discharge - Physician Prescribed Exercise Modalities: Treadmill, Airdyne, NuStep, SciFit Frequency: 3x/week for 12 weeks [36 sessions] Intensity: 60-80% of age predicted maximum heart rate reserve Target Heart Rate:: 99-130 Resting Blood Pressure: 163/78 EKG Type: sinus rhythm - Outcomes & Goals Goals:: Verbalizes understanding of THR, RPE & goal METS by session 6, Documents in home exercise log/reports 30 min aerobic 5 day/wk by DC, Demonstrates accurate pulse taking by DC - Intervention & Plan Exercise Program Goals: Instruct on personal THR & RPE, Instruct on MET level & personal MET goal, Show patient to take own pulse /validate performance until accurate, Instruct on home exercise - Physical Activity Home Exercise Physical Activity - Home Exercise: Safe Exercise, Warm-up, Self-monitoring, Cool-Down, Home Exercise > 30 min Daily, Sitting Time <3 hours/daily - Outcomes & Goals Outcomes/Goals: Demonstrates correct Warm-up/exercise Cool-Down (S3) if = 2.5 METs, Verbalizes symptoms of exercise intolerance by Session 3 (S3), Demonstrate safe equipment use (S3) & follows exercise prescrition (6) - Intervention & Plan Plan/Intervention: Instruct warm-up & cool-down if exercising at > 2 METs, Instruct on symptoms of exercise intolerance & actions to take, Instruct & monitor on saf, Assess intial functional capacity & safety risk Nutrition - Initial Assessment - Program Goals Nutrition Program Goals: LDL <100 optimal. 100 - 129 Near optimal. 130 - 159 Borderline High. 160 - 189 High. Total Cholesterol <200 desirable. 200 - 239 Borderline High. >/= 240 High. HDL < 40 Low >/=60 High. Triglycerides <150 desirable. <199 optimal. VlDL 5 - 40. HgbA1C <7%. BMI <25 Patient has diagnosis of Hyperlipidemia (ICD E78)?: Yes - Visit Date of Assessment:: 07/10/20 Session #:: 0 - pre-cardiac rehab - Cholesterol/Lipids Triglycerides (mg/dL): 283 Total Cholesterol (mg/dL): 253 LDL Cholesterol (mg/dL): 163 HDL Cholesterol (mg/dL): 33 Determine presence & major risk factors that modify LDL goal: Hypertension or hypertensive medication, Low HDL cholesterol <40 mg/dL*, Age men > 45 years; women >/= 55 years Outcomes/Goals: Pt IDs own risk factors & lifestyle modifications by Session 10, Verbalizes symptoms of angina & response by session 3., Pt independently manages Intervention/Plan: Instruct on personal lipid levels & lipid goals/NCEP guidelines, Instruct on cholesterol Referral to dietitian:: Yes - Diabetes (Other Core Measures) Diabetes Type: Diagnosis Type II ICD-10 E11 Fasting blood glucose:: 160 Hgb A1C (4.2 - 6.3): 9.4 Insulin dependent injection/pump?: Yes Non-Insulin Dependent?: Yes Do you monitor your blood sugar at home?: Yes Referral to Diabetic Clinic:: Yes Outcomes/Goals:: Able to state symptoms of, Able to state, Able to state Intervention/Plan:: Instruct on, Refer to, Instruct on - Weight Mgt (Other Care) Not Applicable: No Height: 5 ft 1 in Weight:: 157 lb BMI: 29.6 Diagnosis Overweight/Obesity BMI> 30% ICD-10 E66: Yes Diagnosis High BMI/Morbid Obesity BMI> 35% ICD-10 Z68: No Outcomes/Goals: Pt sets, maintains & shows weight loss goal & trend during rehab Intervention/Plan: Instruct on ideal BMI & set weight loss goal w/patient, Assist pt to ID & incorporate diet changes for weight loss by S9, Refer to Structured Weight Loss program as appropriate, Encourage goal of using 250-300dcal per session for weight loss - Healthy Eating Habits Will attend diet classes:: Yes Outcomes/Goals:: Consume diet rich in vegs,fruits,whole grain/high fiber,fish,lean meat, Limit sat/trans fats,cholesterol & added salts & sugars Intervention/Plan:: Assess current eating habits - Education Gave educational materials for:: Signs & symptoms of hypoglycemia, Signs & symptoms of hyperglycemia, Relate diabetes to coronary artery disease, Healthy eating Medical - Initial Assessment - Visit Date of Eval: 07/10/20 Session #:: 0 - pre-cardiac rehab eval - Medication Compliance Preventative Medication(s):: Aspirin, Clopidogrel/P2Y12 inhibit, Statin/lipid, Beta clemencia H/O mental health issues: depression, anxiety, or addiction?: No Doesn?t believe in the benefits of treatment?: No Believes medications are unnecessary or harmful?: No Has a concern about medication side effects?: No Expresses concern over the cost of medications?: No Outcomes/Goals: Verbalizes medications,desired effect & common side effects @ DC, Pt self-reports following medication regimen, Keeps card in wallet w/medications listed by DC Interventions/plans: Instruct on medication effects & side effects, Review medication list w/patient every two weeks, Instruct importance of taking meds as ordered & assist problem solving - Tobacco Use Tobacco Use: Non-smoker - Hypertension Hypertension Diagnosis:: Hypertension ICD-10 I10 Resting Blood Pressure:: 144/75 [place] [employer] Hypertension Guidelines: [place] [employer] Hypertension Guidelines. Normal BP Less than 120/80. Elevated BP 120/80. Hypertension Stage 1: BP 130-139/80-89. Hypertesnion Stage 2: BP 140 or higher/90 or higher. Hypertension Crisis: BP higher than 180/120 Outcomes/Goals: Able to verbalize/achieve optimal blood pressure <130/80, Incorporates diet changes & exercise for blood pressure control by DC Interventions/plan: Instruct on optimal blood pressure, hypertension & medications, Instruct on effects of sodium, alcohol, stress, exercise &hypertension - Tobacco Cessation Referral Smoking Cessation Referral:: No Individual Education/Counseling:: No Education Schedule Given:: Yes Psychosocial - Initial Assess - VIsit Date of Eval: 07/10/20 Session #:: 0 - pre-cardiac rehab Not Applicable: Yes History of previous Mental disease:: No - Target Goals Target Goals: Assess presence or absence of depression. Using a valid screening tool, maximizes coping skills. Positive support system - Psychosocial Test Tool Used:: [place] QOL Cardiac, PHQ-9 Questionnaire phq-9 Severity: Severity. 1-4 Minimal Depression. 5-9 Mild Depression. 10-14 Moderate Depression. 15-19 Moderately Sever Depression. 20-27 Severe Depression. Rule: See PHQ-9 Score: 19 - Moderate-Severe Depression as indicated on PHQ-9 score - Referral to Behavioral Health PS - Interventions: Yes Referral to Physician if PHQ-9 if score is 5-9: - Refer to PCP, Yes Attend Stress Management Classes, No Referral to Behavioral Health if PHQ-9 score >9:, No Referral to [facility] - Outcomes/Goals: See list Psychosocial Outcomes/Goals:: ID's personal stressors & 2 strategies to manage stress by discharge - Intervention/Plan: See List Interventions/Plan:: Assess stressors,coping strategies & signs of derpression on admission, Instruct/assist pt to develop coping & personal stress Mgt strategies, Instruct patient to recognize signs & symptoms of depression, Instruct patient to recog Patient Health Questionnaire Initial Assessment 1. Little interest or pleasure in doing things: Nearly every day 2. Feeling down, depressed, or hopeless: Nearly every day 3. Trouble falling or staying asleep, or sleeping too much: Nearly every day 4. Feeling tired or having little energy: Nearly every day 5. Poor appetite or overeating: Nearly every day 6. Feeling bad about yourself -- or that you are a failure or have let yourself or your family down: Several days 7. Trouble concentrating on things, such as reading the newspaper or watching television: Nearly every day 8. Moving or speaking so slowly that other people could have noticed. Or the opposite - being so fidgety or restless that you have been moving around a lot more than usual: Not at all 9. Thoughts that you would be better off , or of hurting yourself in some way: Not at all How difficult have these problems made it for you to do your work, take care of things at home, or get along with other people?: Somewhat difficult - Patient could benefit from physician or behavioral intervention ofr depression. Total Score: 19 KENDRICK-Q SV Test - Statements CAD is a disease of the arteries in the heart: False Examples of risk factors for heart disease: True Angina is chest pain or discomfort: I Don't Know The benefits of resistance training include: True Eating more meat and dairy products: False Anti-platelet medications such as aspirin are important: True The only effective way to manage stress: False An exercise warm-up slowly increases heart rate: True Prepared, processed foods usually have high sodium: True Depression is common after a heart attack: True The statin medications lower cholesterol: True To control blood pressure, lower the amount of sodium: False If someone gets chest discomfort during walking: True Transfats are partially hydrogenated vegetable oils: False Sleep apnea that is not treated increases the risk: I Don't Know To control cholesterol, one should become a vegetarian: I Don't Know Someone knows if he/she is exercising at the right level: False Diabetes cannot be prevented with exercise & health eating: True Stress is a large risk for heart attack: True A diet that can help lower blood pressure is rich in: True - Total Score Total Correct Responses: 12 Self-Efficacy Initial Assessment We would like to know how confident you are in doing certain activities. Please select your confidence level for:: Select your confidence level for the following using the scale 1-10 where 1 is not at all confident and 10 is totally confident. Your score is the average of all 6 responses. Fatigue: How confident are you that you can keep the fatigue caused by your disease from interfering with the things you want to do? Select Number: 3 Physical Discomfort or Pain: How confident are you that you can keep the physical discomfort or pain of your disease from interfering with the things you want to do? Select Number: 8 Emotional Distress: How confident are you that you can keep the emotional distress caused by your disease from interfering with the things you want to do? Select Number: 5 Other Symptoms or Health Problems: How confident are you that you can keep other symptoms or health problems from interfering with the things you want to do? Select Number: 5 Different Tasks and Activities: How confident are you that you can do the different tasks and activities needed to manage your health condition so as to reduce your need to see a doctor? Select Number: 5 Medication: How confident are you that you can do things other than just taking medication to reduce how much your illness affects your everyday life? Select Number: 7 Total Score:: 5 Nutrition Survey - Nutrition Survey Instructions Scoring Instructions: Scoring is as follows: Yes = 1 points. No = 0 point. Patient score that is >/=12 is considered to be at potential nutritional risk and could benefit from a referral to a registered dietitian. - Nutrition Survey Initial Have you lost >10 lbs over the past 2 months without trying?: No Are you following a special diet at home for diabetes, low fat, or low salt?: No Are you interested in meeting with a dietitian for help understanding your diet?: Yes Do you eat less than 3 meals a day?: No Do you eat fatty meats (brian, sausage, ribs, etc), fried foods, desserts, large amounts of salad dressings, margarine, butter, or cheese most days?: Yes Do you have food allergies? [Enter types in comment field]: No Do you eat in restaurants more than 3 times a week?: No Do you season food with salt, seasoning salt, or garlic salt?: Yes Do you used canned, boxed, frozen meals, or soups, seasoning packets?: Yes - Refer to Nutritional Services for Why Weight, Medical Nutrition Therapy and DSMNT & MNGMT Total Score:: 4
--- NOTE | 2020-07-10 08:00 | PCM.CR.HP2 ---
CR - History & Physical - General Arrival date:: 07/10/20 Arrival time:: 08:03 Date of Referral:: 07/07/20 Date of CR Evaluation:: 07/10/20 Referring Physician: Dr. Phillip Castillo Primary Diagnosis: NSTEMI, PCI w/coronary stenting - History of Present Cardiac Event Onset Date: Enter Onset Date of cardiac illnesses in Comment field below Acute Myocardial Infarction within 12 months:: Yes - NSTEMI 07/07/2020 PTCA or coronary stenting:: Yes - 07/07/2020 Type of Symptoms:: chest pains Interventions with present event:: heart cath, subsequent stent palcement Were there any complications?: none - Medications Home Medications: Ambulatory Orders Medication Instructions Recorded Aspirin [Aspirin, Baby] 81 mg PO QHS 10/24/13 Citalopram [Celexa] 20 mg PO QHS 10/24/13 Hydrochlorothiazide 25 mg PO DAILY 10/24/13 Insulin Glargine [Lantus SoloStar 50 units SC QHS 10/24/13 Pen] Lisinopril [Zestril] 5 mg PO DAILY 10/24/13 Aspirin E.C. [Ecotrin] 81 mg PO QHS tab 07/08/20 Atorvastatin Calcium [Lipitor] 40 mg PO QHS #30 tab 07/08/20 Carvedilol [Coreg (Beta Demetris)] 3.125 mg PO BID #60 tab 07/08/20 Clopidogrel Bisulfate [Plavix] 75 mg PO DAILY #30 tab 07/08/20 Insulin Lispro [Humalog KwikPen] 10 unit SC BREAKFAST insuln.pen 07/08/20 Insulin Lispro [Humalog KwikPen] 10 unit SC DINNER insuln.pen 07/08/20 Insulin Lispro [Humalog KwikPen] 10 unit SC LUNCH insuln.pen 07/08/20 - Allergies Allergies/Adverse Reactions: Allergies atorvastatin [From Lipitor] Adverse Reaction (Mild, Verified 07/07/20 05:30) nausea lovastatin Adverse Reaction (Verified 07/07/20 05:30) nausea rosuvastatin [From Crestor] Adverse Reaction (Verified 07/07/20 05:30) nausea simvastatin [Zocor] Adverse Reaction (Verified 07/07/20 05:30) nausea - Sleep Disorder Evaluation Hx of Sleep Apnea: No Do you snore loudly (louder than talking or can be heard through closed doors)?: No Do you often feel tired/ fatigued/ sleepy during daytime?: Yes Has anyone observed you stop breathing during sleep?: No History of Hypertension (for STOP score): Yes STOP Results: Positive Advanced Directives - Advanced Directives Power of Manager Cardiac Cath: Yes Living Will: Yes Advance Directives Information Provided: No Advance Directives on File: No DNR Order?:: No - MOLST See MOLST form: No Past Medical History - Covid-19 Screening Fever: No Unexplained muscle aches: No Current respiratory symptoms: No Upper respiratory infections symptoms: No Gastro-intestinal symptoms: No Fqi-Yyaq-Orxxxg symptoms: No Has tested positive for COVID-19 in last 30 days: No Had contact w/person w/symptoms or Covid-19 (+) last 14 days: No Has High Risk Exposures ID'd by Health dept/Inf Control team: No 65 years or older:: Yes Lives in Assisted Living facility:: No Has a chronic lung disease or moderate to severe asthma:: No Has a serious heart condition:: No Immunocompromised:: No Diabetic:: Yes Has chronic kidney disease undergoing dialysis:: No Has liver disease:: No - Past Medical Illness Medical History: Past Medical History (Last Updated 07/10/20 @ 08:24 by George Bhakta, SPREADER BOX OPERATOR, DECAY CONTROL OPERATOR, BS) Non-ST elevation OK (NSTEMI) (Acute) Onset Date: 07/07/20 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 Type 2 diabetes mellitus (Chronic) E11.9 Hyperlipidemia (Chronic) E78.5 Essential (primary) hypertension (Chronic) I10 BMI 30.0-30.9,adult Z68.30 - Past Surgical History Surgical History: Past Surgical History (Last Updated 07/08/20 @ 08:42 by Suzanne Randall) History of coronary artery stent placement (Chronic) Onset Date: 07/07/20 Z95.5 PCI-[facility] w/ 3 x 20 mm Synergy Stent 07/07/2020 History of incision and drainage Z98.890 Chronic wounds to the lower abdomen History of lumpectomy Z98.890 Surgical History: - - Lumpectomy of breast - Family History Summary Family History: Family History (Last Updated 07/08/20 @ 08:41 by Suzanne Randall) Mother Heart disease Hypertension Father Arthritis Social History - Smoking History Smoking Status: Never smoker - Alcohol Use Alcohol Usage: No - Substance Abuse Hx Substance Use: No - Occupation Occupation (List type of work in comments):: Homemaker, Retired - Hobbies, Recreation, Social Activities Hobbies: Other - being outside Recreational Activities: I am able to engage in most, but not all activities Social Environment - Status Marital Status: - Current Living Arrangements Living Environment:: Spouse - Children How many children do you have?: 4 - all boys Do any of your children live nearby?: Yes - Safety Do you feel safe in your surroundings?: Yes - Assistance Do you need any assistance at home?: none Review of Systems - Review of Systems Hints: Right click = Denies ([place]). Left click = Reports ([place]) Review of Present Symptoms: Reports: Shortness of Breath with Exertion - some, but not really noticable., Appetite - Normal, Sleep - Normal, - - headaches. Denies: Shortness of Breath at Rest, Angina, Dizziness/Lightheadedness, Fatigue, Heart Arrhythmia/Irregularities, Appetite - Special Diet - NO special diet ordered on discharge - Pain Is Patient Pain Free?: Yes Pain Location: none Pain Level: 0/10 Risk Factor Assessment - Chief Complaint Chief Complaint: Patient is a 69 yr old female of Dr. Redmond who presents to cardiac rehab following recent NSTEMI and PCI intervention on 07/07/2020. - Vital Signs Temperature: 97.7 F Respiratory Rate: 14 Pulse Ox: 96 Blood Pressure: 144/75 - Pulse Pulse Rate: 81 Pulse Rhythm: Regular - Hypertension Blood Pressure Sitting - Left Arm: 163/78 - Blood Cholesterol/Lipids Total Cholesterol (mg/dL) Goal = less than 200 mg/dL: 253 HDL Cholesterol (mg/dL) Goal = less than 40 mg/dL: 33 LDL Cholesterol (mg/dL) Goal = less than 70 mg/dL: 163 Triglycerides (mg/dL) Goal = less than 150 mg/dL: 283 - Diabetes Diabetic History: Type II, Medication Dependent, Insulin Dependent - Obesity Height: 5 ft 1 in Weight:: 157 lb Weight in Pounds: 157.0 lbs Weight Source: Stated by Patient Body Mass Index (BMI): 29.6 Nutritional Referral for Obesity: Yes - Physical Inactivity Physical Inactivity: None - Risk Stratification Risk Guidelines: Lowest Risk: Risk Factor for Smoking, Risk Factor for Depression, Moderate Risk: Risk Factor for Dyslipidemia, Risk Factor for Sedentary Lifestyle, Highest Risk: Risk Factor for Diabetes - Glucose 160; hBA1c 9.4, Risk Factor for Obesity, Risk Factor for Hypertension - 163/78 - For Smoking Smoking Risk Guidelines: Smoking Low Risk: None or quit greater than 6 months ago. Smoking Moderate Risk: Smoker or quit 6 months or less ago. Smoking High Risk: Smoker - For Dyslipidemia Dyslipidemia Risk Guidelines: Low Risk: Moderate Risk: High Risk: 15-25% fat 25.1-29% fat >/= 30% fat. <7% sat fat 7-9% sat fat >9% sat fat. <150 mg chol 150-299 mg chol >/= 300 mg chol. LDL <100 LDL 100-129 LDL >/= 130. Chol/HDL ratio <5.0 Chol/HDL ratio 5.0-6.0 Chol/HDL ratio >6.0. Triglycerides <100 Triglycerides 100-149 Triglycerides >/= 150 - For Diabetes Mellitus Diabetes Risk Guidelines: Diabetes Low Risk: HgA1c <6.5% and/or FBG <120. Diabetes Moderate Risk: HgA1c 6.6-7.9% and/or FBG 120-180. Diabetes High Risk: HgA1c >/= 8% and/or FBG >180 - For Obesity/Overweight Obesity/Overweight Risk Guidelines: Obesity Low Risk: BMI <25.0. Obesity Moderate Risk: BMI 25-29.9. Obesity High Risk: BMI >/= 30.0 - For Hypertension Hypertension Risk Guidelines: Hypertension Low Risk: Systolic <120 and Diastolic <80. Hypertension Moderate Risk: Systolic 120-139 and Diastolic 80-89. Hypertension High Risk: Systolic >/= 140 and Diastolic >/= 90 - For Sedentary Lifestyle Sedentary Lifestyle Risk Guidelines: Sedentary Lifestyle Low Risk: >/= 1,500 kcal/week. Sedentary Lifestyle Moderate Risk: 700-1,499 kcal/week. Sedentary Lifestyle High Risk: < 700 kcal/week - For Depression Depression Risk Guidelines: Depression Low Risk: Not clinically depressed. Depression Moderate Risk: Mildly depressed. Depression High Risk: Clinically depressed - Family History Family History: Family History (Last Updated 07/08/20 @ 08:41 by Suzanne Randall) Mother Heart disease Hypertension Father Arthritis Motivation - Motivation to Participate On a scale of 1 to 10, how prepared are you to commit to attending program?: 8 What do you see as barriers to successfully being able to complete the program?: none What do you see as the benefits of succesfully completing the program? In other words, what do you hope to get out of participating in the program?: regular exercise routine, healthier, more energy Are there issues you are dealing with that will interfere with completing the program?: none Do you have a spouse or signficant other, family or friends who will help support you to complete the program?: Yes
[2020-07-10 08:20] VITALS: BP 144/75; BP 163/78; BMI 29.6
[2020-07-10 08:37] VITALS: BP 144/75; BP 163/78; PULSE 81; RESP 14; TEMP 36.5; O2SAT 96; BMI 29.6
== END ==
PROVIDERS: PCP Family Medicine; Referring Provider Internal Medicine Cardiovascular Disease; Visit Provider Internal Medicine Cardiovascular Disease
DX: E11.9 Type 2 diabetes mellitus without complications (principal); I10 Essential (primary) hypertension; E78.5 Hyperlipidemia, unspecified; E66.9 Obesity, unspecified

== ENCOUNTER 2020-08-14 08:00 | Outpatient (RCR) | payer MEDICARE, OTHER, SELFPAY ==
[2020-07-10 08:20] VITALS: BMI 29.6
[2020-07-10 08:37] VITALS: BMI 29.6
--- NOTE | 2020-08-07 06:46 | CR.ITP_ITS ---
Exercise - 30-day Assessment - Visit Date of Eval: 08/07/20 Session #:: 8 - Physician Prescribed Exercise Modalities: Treadmill, NuStep, SciFit Frequency: 3x/week for 12 weeks [36 sessions] Intensity: 60-80% of age predicted maximum heart rate reserve Current METSs:: 3.5 increased from 3.0 Target Heart Rate:: 99-130 Current RPE:: 11-12 Maximum Excercise HR:: 99 Resting Blood Pressure: 128/78 Maximum Exercise Blood Pressure: 130/80 EKG Type: NSR to sinus tach with rare PVC and PAC - Outcomes & Goals Goals:: Verbalizes understanding of THR, RPE & goal METS by session 6, Documents in home exercise log/reports 30 min aerobic 5 day/wk by DC, Demonstrates accurate pulse taking by DC - Intervention & Plan Exercise Program Goals: Instruct on personal THR & RPE, Instruct on MET level & personal MET goal, Show patient to take own pulse /validate performance until accurate, Instruct on home exercise - 30-day Reassessments 30 day Reassessments:: Progressing - Physical Activity Home Exercise Physical Activity - Home Exercise: Safe Exercise, Warm-up, Self-monitoring, Cool-Down, Home Exercise > 30 min Daily, Sitting Time <3 hours/daily - Outcomes & Goals Outcomes/Goals: Demonstrates correct Warm-up/exercise Cool-Down (S3) if = 2.5 METs, Verbalizes symptoms of exercise intolerance by Session 3 (S3), Demonstrate safe equipment use (S3) & follows exercise prescrition (6) - Intervention & Plan Plan/Intervention: Instruct warm-up & cool-down if exercising at > 2 METs, Instruct on symptoms of exercise intolerance & actions to take, Instruct & monitor on saf, Assess intial functional capacity & safety risk - 30-day Reassessments 30 day Reassessments:: Progressing Nutrition - 30-Day Assessment - Program Goals Nutrition Program Goals: LDL <100 optimal. 100 - 129 Near optimal. 130 - 159 Borderline High. 160 - 189 High. Total Cholesterol <200 desirable. 200 - 239 Borderline High. >/= 240 High. HDL < 40 Low >/=60 High. Triglycerides <150 desirable. <199 optimal. VlDL 5 - 40. HgbA1C <7%. BMI <25 Patient has diagnosis of Hyperlipidemia (ICD E78)?: Yes - Visit Date of Assessment:: 08/07/20 Session #:: 8 - Cholesterol/Lipids Triglycerides (mg/dL): 283 - 07/08/2020 Total Cholesterol (mg/dL): 253 LDL Cholesterol (mg/dL): 163 HDL Cholesterol (mg/dL): 33 Determine presence & major risk factors that modify LDL goal: Hypertension or hypertensive medication, Low HDL cholesterol <40 mg/dL*, Age men > 45 years; women >/= 55 years Outcomes/Goals: Pt IDs own risk factors & lifestyle modifications by Session 10, Verbalizes symptoms of angina & response by session 3., Pt independently manages Intervention/Plan: Instruct on personal lipid levels & lipid goals/NCEP guidelines, Instruct on cholesterol Referral to dietitian:: Yes - Medical Nutrition Therapy 30-day Reassessments:: Progressing - Diabetes (Other Core Measures) Diabetes Type: Diagnosis Type II ICD-10 E11 Fasting blood glucose:: 160 - 07/08/2020 Hgb A1C (4.2 -6.3): 9.4 Insulin dependent injection/pump?: Yes Non-Insulin Dependent?: Yes Do you monitor your blood sugar at home?: Yes Referral to Diabetic Clinic:: Yes Outcomes/Goals:: Able to state symptoms of, Able to state, Able to state Intervention/Plan:: Instruct on, Refer to, Instruct on 30-day Reassessments:: Progressing - Weight Mgt (Other Care) Not Applicable: No Height: 5 ft 1 in Weight:: 157 lb 8 oz BMI: 29.7 Diagnosis Overweight/Obesity BMI> 30% ICD-10 E66: Yes Diagnosis High BMI/Morbid Obesity BMI> 35% ICD-10 Z68: No Outcomes/Goals: Pt sets, maintains & shows weight loss goal & trend during rehab Intervention/Plan: Instruct on ideal BMI & set weight loss goal w/patient, Assist pt to ID & incorporate diet changes for weight loss by S9, Refer to Structured Weight Loss program as appropriate, Encourage goal of using 250- 300dcal per session for weight loss 30 day Reassessments:: Progressing - Healthy Eating Habits Will attend diet classes:: Yes Outcomes/Goals:: Consume diet rich in vegs,fruits,whole grain/high fiber,fish,lean meat, Limit sat/trans fats,cholesterol & added salts & sugars Intervention/Plan:: Assess current eating habits 30-day Reassessments:: Progressing - Education Gave educational materials for:: Signs & symptoms of hypoglycemia, Signs & symptoms of hyperglycemia, Relate diabetes to coronary artery disease, Healthy eating Medical- 30-Day Assessment - Visit Date of Eval: 08/07/20 Session #:: 8 - Medication Compliance Preventative Medication(s):: Aspirin, Clopidogrel/P2Y12 inhibit, Statin/lipid, Beta clemencia H/O mental health issues: depression, anxiety, or addiction?: No Doesn?t believe in the benefits of treatment?: No Believes medications are unnecessary or harmful?: No Has a concern about medication side effects?: No Expresses concern over the cost of medications?: No Outcomes/Goals: Verbalizes medications,desired effect & common side effects @ DC, Pt self-reports following medication regimen, Keeps card in wallet w/medications listed by DC Interventions/plans: Instruct on medication effects & side effects, Review medication list w/patient every two weeks, Instruct importance of taking meds as ordered & assist problem solving 30-day Reassessments:: Progressing - Tobacco Use Tobacco Use: Non-smoker - Hypertension Hypertension Diagnosis:: Hypertension ICD-10 I10 Resting Blood Pressure:: 128/78 [employer] Hypertension Guidelines: [place] [employer] Hypertension Guidelines. Normal BP Less than 120/80. Elevated BP 120/80. H ypertension Stage 1: BP 130-139/80-89. Hypertesnion Stage 2: BP 140 or higher/90 or higher. Hypertension Crisis: BP higher than 180/120 Peak Exercise Blood Pressure:: 130/80 Outcomes/Goals: Able to verbalize/achieve optimal blood pressure <130/80, Incorporates diet changes & exercise for blood pressure control by DC Interventions/plan: Instruct on optimal blood pressure, hypertension & medications, Instruct on effects of sodium, alcohol, stress, exercise &hypertension 30 day Reassessments:: Progressing - Tobacco Cessation Referral Smoking Cessation Referral:: No Individual Education/Counseling:: No Education Schedule Given:: Yes Psychosocial - 30-Day Assess - VIsit Date of Eval: 08/07/20 Session #:: 8 Not Applicable: Yes History of previous Mental disease:: No - Target Goals Target Goals: Assess presence or absence of depression. Using a valid screening tool, maximizes coping skills. Positive support system - Psychosocial Test Tool Used:: PHQ-9 Questionnaire phq-9 Severity: Severity. 1-4 Minimal Depression. 5-9 Mild Depression. 10-14 Moderate Depression. 15-19 Moderately Sever Depression. 20-27 Severe Depression. Rule: - Referral to Behavioral Health PS - Interventions: Yes Referral to Physician if PHQ-9 if score is 5-9: - PHQ score indicates Moderate Depression, Yes Attend Stress Management Classes, No Referral to Behavioral Health if PHQ-9 score >9:, No Referral to [facility] - Outcomes/Goals: See list Psychosocial Outcomes/Goals:: ID's personal stressors & 2 strategies to manage stress by discharge - Intervention/Plan: See List Interventions/Plan:: Assess stressors,coping strategies & signs of derpression on admission, Instruct/assist pt to develop coping & personal stress Mgt strategies, Instruct patient to recognize signs & symptoms of depression, Instruct patient to recog - 30-day Reassessments: 30 day Reassessments:: Progressing Patient Health Questionnaire 30-Day Re-eval Assessment 1. Little interest or pleasure in doing things: More than half the days 2. Feeling down, depressed, or hopeless: More than half the days 3. Trouble falling or staying asleep, or sleeping too much: More than half the days 4. Feeling tired or having little energy: More than half the days 5. Poor appetite or overeating: Several days 6. Feeling bad about yourself -- or that you are a failure or have let yourself or your family down: Not at all 7. Trouble concentrating on things, such as reading the newspaper or watching television: Several days 8. Moving or speaking so slowly that other people could have noticed. Or the opposite - being so fidgety or restless that you have been moving around a lot more than usual: Not at all 9. Thoughts that you would be better off , or of hurting yourself in some way: Not at all How difficult have these problems made it for you to do your work, take care of things at home, or get along with other people?: Somewhat difficult Total Score: 10 Self-Efficacy 30-Day Re-eval Assessment We would like to know how confident you are in doing certain activities. Please select your confidence level for:: Select your confidence level for the following using the scale 1-10 where 1 is not at all confident and 10 is totally confident. Your score is the average of all 6 responses. Fatigue: How confident are you that you can keep the fatigue caused by your disease from interfering with the things you want to do? Select Number: 5 Physical Discomfort or Pain: How confident are you that you can keep the physical discomfort or pain of your disease from interfering with the things you want to do? Select Number: 9 Emotional Distress: How confident are you that you can keep the emotional distress caused by your disease from interfering with the things you want to do? Select Number: 7 Other Symptoms or Health Problems: How confident are you that you can keep other symptoms or health problems from interfering with the things you want to do? Select Number: 7 Different Tasks and Activities: How confident are you that you can do the different tasks and activities needed to manage your health condition so as to reduce your need to see a doctor? Select Number: 8 Medication: How confident are you that you can do things other than just taking medication to reduce how much your illness affects your everyday life? Select Number: 9 Total Score:: 7
[2020-08-07 06:55] VITALS: BP 128/78; BP 130/80; BMI 29.7
== END 2020-08-14 23:59 ==
LOC: CR 08:00
PROVIDERS: PCP Family Medicine; Referring Provider Internal Medicine Cardiovascular Disease; Visit Provider Internal Medicine Cardiovascular Disease
DX: I25.10 Atherosclerotic heart disease of native coronary artery without angina pectoris (principal); Z95.5 Presence of coronary angioplasty implant and graft; E11.9 Type 2 diabetes mellitus without complications; E78.5 Hyperlipidemia, unspecified; I10 Essential (primary) hypertension; I25.2 Old myocardial infarction
CPT/HCPCS: 93798

== ENCOUNTER → 2020-08-21 10:25 | Outpatient (CLI) | payer MEDICARE, OTHER, SELFPAY ==
[2020-07-22 09:29] VITALS: BMI 29.2
[2020-08-07 06:55] VITALS: BMI 29.7
[2020-08-21 12:23] LABS: Erythrocyte Sedimentation Rate 12 mm/hr (0-30)
[2020-08-21 12:29] LABS: Absolute Lymphocyte Count 1.69 X10^3/uL (0.83-4.51); Absolute Neutrophil Count 3.8 X10^3/uL (2.0-7.7); Basophil# 0.04 X10^3/uL; Basophil% 0.6 % (0-1); Eosinophil# 0.27 X10^3/uL; Eosinophils% 4.3 % (0-5); Hematocrit 40.1 % (37-47); Hemoglobin 13.4 g/dL (12.0-15.0); Lymphocyte # 1.69 X10^3/ul (4.0); Lymphocyte % 27.2 % (19-41); Mean Corp Hgb Conc 33.4 g/dL (32-36); Mean Corpuscular Hgb 30.7 pg (27.0-32.0); Mean Corpuscular Volume 91.8 fL (81-99); Mean Platelet Vol. 10.9 fl (6.2-12.0); Monocyte# 0.43 X10^3/uL; Monocyte% 6.9 % (0-10); NRBC Flagged by Analyzer 0 % (0-5); Neutrophil # 3.77 X10^3/uL (2.7-7.7); Neutrophil % 60.7 % (47-70); Platelet Count 206 K/mm3 (150-450); RBC Distribution Width CV 12.3 % (11.6-14.6); RBC Distribution Width SD 40.1 fl (35.1-43.9); Red Blood Count 4.37 M/mm3 (4.2-5.4); White Blood Count 6.2 K/mm3 (4.4-11.0)
[2020-08-21 12:49] LABS: Anion Gap 3 (5-15); BUN 18 mg/dL (7-18); BUN/Creat Ratio 21.7 RATIO (10-20); Calcium,Total 9.5 mg/dL (8.5-10.1); Chloride 100 mmol/L (98-107); Creatinine, Serum 0.83 mg/dL (0.55-1.02); EST Glomerular Filtration Rate 73 mL/min (>60); Est Glom Filt Rate - Afr Amer 88 mL/min (>60); Glucose 241 mg/dL (74-106); Potassium 3.8 mmol/L (3.5-5.1); Sodium Level 132 mmol/L (136-145); Thyroid Stim Hormone (TSH) 1.75 uIU/mL (0.358-3.74)
== END ==
PROVIDERS: PCP Family Medicine; Referring Provider Family Medicine; Visit Provider Family Medicine
DX: E11.9 Type 2 diabetes mellitus without complications (principal); R53.81 Other malaise
CPT/HCPCS: 36415; 80048; 84443; 85025; 85652

== ENCOUNTER 2020-09-06 08:00 | Outpatient (RCR) | payer MEDICARE, OTHER, SELFPAY ==
[2020-07-22 09:29] VITALS: BMI 29.2
[2020-08-07 06:55] VITALS: BMI 29.7
[2020-08-15 00:17] VITALS: BP 128/78; BP 130/80
--- NOTE | 2020-09-06 06:45 | CR.ITP_ITS ---
Exercise - 60-day Assessment - Visit Date of Bang: 09/06/20 Session #:: 21 Comments:: Sasha attended 17 of 22 scheduled sessions and is currently 77% compliant with attendance. - Physician Prescribed Exercise Modalities: Treadmill, Airdyne, NuStep, SciFit Frequency: 3x/week for 12 weeks [36 sessions] Intensity: 60-80% of age predicted maximum heart rate reserve Current METSs:: 4.5 increase from 3.0 Target Heart Rate:: 99-130 Current RPE:: 11-12 Maximum Excercise HR:: 108 Resting Blood Pressure: 148/84 - elevated w/medications Maximum Exercise Blood Pressure: 166/72 EKG Type: NSR to sinsu tach w/occas. PVCs and PACs - Outcomes & Goals Goals:: Verbalizes understanding of THR, RPE & goal METS by session 6, Documents in home exercise log/reports 30 min aerobic 5 day/wk by DC, Demonstrates accurate pulse taking by DC - Intervention & Plan Exercise Program Goals: Instruct on personal THR & RPE, Instruct on MET level & personal MET goal, Show patient to take own pulse /validate performance until accurate, Instruct on home exercise - 30-day Reassessments 30 day Reassessments:: Progressing - Physical Activity Home Exercise Physical Activity - Home Exercise: Safe Exercise, Warm-up, Self-monitoring, Cool-Down, Home Exercise > 30 min Daily, Sitting Time <3 hours/daily - Outcomes & Goals Outcomes/Goals: Demonstrates correct Warm-up/exercise Cool-Down (S3) if = 2.5 METs, Verbalizes symptoms of exercise intolerance by Session 3 (S3), Demonstrate safe equipment use (S3) & follows exercise prescrition (6) - Intervention & Plan Plan/Intervention: Instruct warm-up & cool-down if exercising at > 2 METs, Instruct on symptoms of exercise intolerance & actions to take, Instruct & monitor on saf, Assess intial functional capacity & safety risk - 30-day Reassessments 30 day Reassessments:: Progressing Nutrition - 60-Day Assessment - Program Goals Nutrition Program Goals: LDL <100 optimal. 100 - 129 Near optimal. 130 - 159 Borderline High. 160 - 189 High. Total Cholesterol <200 desirable. 200 - 239 Borderline High. >/= 240 High. HDL < 40 Low >/=60 High. Triglycerides <150 desirable. <199 optimal. VlDL 5 - 40. HgbA1C <7%. BMI <25 Patient has diagnosis of Hyperlipidemia (ICD E78)?: Yes - Visit Date of Assessment:: 09/06/20 Session #:: 21 - Cholesterol/Lipids Triglycerides (mg/dL): 283 Total Cholesterol (mg/dL): 253 LDL Cholesterol (mg/dL): 163 HDL Cholesterol (mg/dL): 33 Determine presence & major risk factors that modify LDL goal: Hypertension or hypertensive medication, Low HDL cholesterol <40 mg/dL*, Family history of premature CHD in Male < 55 years: female <65 yearsFa, Age men > 45 years; women >/= 55 years Outcomes/Goals: Pt IDs own risk factors & lifestyle modifications by Session 10, Verbalizes symptoms of angina & response by session 3., Pt independently manages Intervention/Plan: Instruct on personal lipid levels & lipid goals/NCEP guidelines, Instruct on cholesterol Referral to dietitian:: Yes 30-day Reassessments:: Progressing - Diabetes (Other Core Measures) Diabetes Type: Diagnosis Type II ICD-10 E11 Fasting blood glucose:: 160 Hgb A1C (4.2 -6.3): 9.4 Insulin dependent injection/pump?: Yes - Glargine 50u, Lispro 10u Non-Insulin Dependent?: No Do you monitor your blood sugar at home?: Yes Referral to Diabetic Clinic:: Yes Outcomes/Goals:: Able to state symptoms of, Able to state, Able to state Intervention/Plan:: Instruct on, Refer to, Instruct on 30-day Reassessments:: Progressing - Weight Mgt (Other Care) Not Applicable: No Height: 5 ft 1 in Weight:: 157 lb BMI: 29.6 Diagnosis Overweight/Obesity BMI> 30% ICD-10 E66: Yes Diagnosis High BMI/Morbid Obesity BMI> 35% ICD-10 Z68: No Outcomes/Goals: Pt sets, maintains & shows weight loss goal & trend during rehab Intervention/Plan: Instruct on ideal BMI & set weight loss goal w/patient, Assist pt to ID & incorporate diet changes for weight loss by S9, Refer to Structured Weight Loss program as appropriate, Encourage goal of using 250- 300dcal per session for weight loss 30 day Reassessments:: Progressing - Healthy Eating Habits Will attend diet classes:: Yes Outcomes/Goals:: Consume diet rich in vegs,fruits,whole grain/high fiber,fish,lean meat, Limit sat/trans fats,cholesterol & added salts & sugars Intervention/Plan:: Assess current eating habits 30-day Reassessments:: Progressing - Education Gave educational materials for:: Signs & symptoms of hypoglycemia, Signs & symptoms of hyperglycemia, Relate diabetes to coronary artery disease, Healthy eating Medical- 60-Day Assessment - Visit Date of Eval: 09/06/20 Session #:: 21 - Medication Compliance Preventative Medication(s):: Aspirin, Clopidogrel/P2Y12 inhibit, Statin/lipid, Beta clemencia H/O mental health issues: depression, anxiety, or addiction?: No Doesn?t believe in the benefits of treatment?: No Believes medications are unnecessary or harmful?: No Has a concern about medication side effects?: No Expresses concern over the cost of medications?: No Outcomes/Goals: Verbalizes medications,desired effect & common side effects @ DC, Pt self-reports following medication regimen, Keeps card in wallet w/medications listed by DC Interventions/plans: Instruct on medication effects & side effects, Review medication list w/patient every two weeks, Instruct importance of taking meds as ordered & assist problem solving 30-day Reassessments:: Progressing - Tobacco Use Tobacco Use: Non-smoker - Hypertension Hypertension Diagnosis:: Hypertension ICD-10 I10 Resting Blood Pressure:: 148/84 - still elevated w/medications [place] [employer] Hypertension Guidelines: [place] [employer] Hypertension Guidelines. Normal BP Less than 120/80. Elevated BP 120/80. Hypertension Stage 1: BP 130-139/80-89. Hypertesnion Stage 2: BP 140 or higher/90 or higher. Hypertension Crisis: BP higher than 180/120 Peak Exercise Blood Pressure:: 166/72 Outcomes/Goals: Able to verbalize/achieve optimal blood pressure <130/80, Incorporates diet changes & exercise for blood pressure control by DC Interventions/plan: Instruct on optimal blood pressure, hypertension & medications, Instruct on effects of sodium, alcohol, stress, exercise &hypertension 30 day Reassessments:: Progressing - Tobacco Cessation Referral Smoking Cessation Referral:: No Individual Education/Counseling:: No Education Schedule Given:: Yes Psychosocial - 60-Day Assess - VIsit Date of Eval: 09/06/20 Session #:: 21 Not Applicable: Yes History of previous Mental disease:: No - Target Goals Target Goals: Assess presence or absence of depression. Using a valid screening tool, maximizes coping skills. Positive support system - Psychosocial Test Tool Used:: PHQ-9 Questionnaire phq-9 Severity: Severity. 1-4 Minimal Depression. 5-9 Mild Depression. 10-14 Moderate Depression. 15-19 Moderately Sever Depression. 20-27 Severe D epression. Rule: - Referral to Behavioral Health PS - Interventions: Yes Attend Stress Management Classes, No Referral to Behavioral Health if PHQ-9 score >9:, No Referral to [facility], No Referral to Physician if PHQ-9 if score is 5-9: - Outcomes/Goals: See list Psychosocial Outcomes/Goals:: ID's personal stressors & 2 strategies to manage stress by discharge - Intervention/Plan: See List Interventions/Plan:: Assess stressors,coping strategies & signs of derpression on admission, Instruct/assist pt to develop coping & personal stress Mgt strategies, Instruct patient to recognize signs & symptoms of depression, Instruct patient to recog - 30-day Reassessments: 30 day Reassessments:: Progressing Patient Health Questionnaire 60-Day Re-eval Assessment 1. Little interest or pleasure in doing things: Several days 2. Feeling down, depressed, or hopeless: Several days 3. Trouble falling or staying asleep, or sleeping too much: Several days 4. Feeling tired or having little energy: Several days 5. Poor appetite or overeating: Not at all 6. Feeling bad about yourself -- or that you are a failure or have let yourself or your family down: Not at all 7. Trouble concentrating on things, such as reading the newspaper or watching television: Several days 8. Moving or speaking so slowly that other people could have noticed. Or the opposite - being so fidgety or restless that you have been moving around a lot more than usual: Not at all 9. Thoughts that you would be better off , or of hurting yourself in some way: Not at all Total Score: 5 Self-Efficacy 60-Day Re-eval Assessment We would like to know how confident you are in doing certain activities. Please select your confidence level for:: Select your confidence level for the following using the scale 1-10 where 1 is not at all confident and 10 is totally confident. Your score is the average of all 6 responses. Fatigue: How confident are you that you can keep the fatigue caused by your disease from interfering with the things you want to do? Select Number: 6 Physical Discomfort or Pain: How confident are you that you can keep the physical discomfort or pain of your disease from interfering with the things you want to do? Select Number: 9 Emotional Distress: How confident are you that you can keep the emotional distress caused by your disease from interfering with the things you want to do? Select Number: 7 Other Symptoms or Health Problems: How confident are you that you can keep other symptoms or health problems from interfering with the things you want to do? Select Number: 7 Different Tasks and Activities: How confident are you that you can do the different tasks and activities needed to manage your health condition so as to reduce your need to see a doctor? Select Number: 8 Medication: How confident are you that you can do things other than just taking medication to reduce how much your illness affects your everyday life? Select Number: 9 Total Score:: 7
[2020-09-06 06:52] VITALS: BP 148/84; BP 166/72; BMI 29.6
== END 2020-09-13 23:59 ==
LOC: CR 08:00
PROVIDERS: PCP Family Medicine; Referring Provider Internal Medicine Cardiovascular Disease; Visit Provider Internal Medicine Cardiovascular Disease
DX: I25.10 Atherosclerotic heart disease of native coronary artery without angina pectoris (principal); I10 Essential (primary) hypertension; E78.5 Hyperlipidemia, unspecified; E11.9 Type 2 diabetes mellitus without complications; I25.2 Old myocardial infarction; Z95.5 Presence of coronary angioplasty implant and graft
CPT/HCPCS: 93798

== ENCOUNTER → 2020-10-17 10:15 | Outpatient (CLI) | payer MEDICARE, OTHER, SELFPAY ==
[2020-07-22 09:29] VITALS: BMI 29.2
--- NOTE | 2020-10-17 10:20 | BI_ITS ---
MAMMOGRAPHY - BILATERAL SCREENING REASON FOR EXAM: Female, 70 years old. Routine annual screening examination. PERTINENT HISTORY: Personal history of breast cancer. Prior right lumpectomy. TECHNIQUE: Digital bilateral breast maday (3D mammographic acquisition) in the CC and MLO projections. 2-D mediolateral oblique (MLO) and craniocaudad (CC) views of both breasts were obtained. CAD: Full Field Digital Mammography with Computer Added Detection was performed. COMPARISON: Comparison is made with prior abdomen examination dated 02/22/2017. FINDINGS: Breast Composition: There are scattered areas of fibroglandular density. There are no dominant masses or suspicious calcifications. The patient is status post lumpectomy in the upper deep slightly medial aspect of the right breast with evidence of architectural distortion and overlying skin thickening. No other significant abnormalities are identified. There has been no significant change since the prior study. BI/SCREENING MAMM (CAD), BILAT IMPRESSION: Stable bilateral screening mammogram. Yearly follow-up mammogram recommended. (A) ASSESSMENT CATEGORY: BIRADS Category 2: Benign. A letter regarding these results will be sent to the patient by the facility within 30 days. Approximately 10% of breast cancers are not detected by mammography. A normal mammogram should not delay biopsy of a clinically suspicious abnormality. [id number] Electronically Signed: Michael Atkins MD at 11:36 EDT , Service support ,
== END ==
PROVIDERS: PCP Family Medicine; Referring Provider Family Medicine; Visit Provider Family Medicine
DX: Z12.31 Encounter for screening mammogram for malignant neoplasm of breast (principal)
CPT/HCPCS: 77067

== ENCOUNTER → 2021-09-17 | Outpatient (CLI) | payer MEDICARE, OTHER, SELFPAY ==
[2021-09-17 13:08] LABS: Microalbumin,Random Urine 17.9 mg/L (NO RANGE EST.); Microalbumin:Creatinine Ratio 21.6 mg/g CRE (<30 mg/g CRE)
[2021-09-17 13:10] LABS: AST(SGOT) 15 U/L (15-37); Alanine Aminotransfer ALT/SGPT 23 U/L (13-56); Albumin, Serum 3.6 g/dL (3.2-5.0); Alkaline Phosphatase 114 U/L (45-117); Anion Gap 9 (5-15); BUN 20 mg/dL (7-18); BUN/Creat Ratio 20.3 RATIO (10-20); Calcium,Total 9.6 mg/dL (8.5-10.1); Chloride 101 mmol/L (98-107); Cholesterol 170 mg/dL (200); Creatinine, Serum 0.98 mg/dL (0.55-1.02); EST Glomerular Filtration Rate 60 mL/min (>60); Est Glom Filt Rate - Afr Amer 72 mL/min (>60); Globulin 4.2 g/dL (2.2-4.2); Glucose 310 mg/dL (74-106); High Density Lipoprotein 42 mg/dL; Potassium 3.9 mmol/L (3.5-5.1); Protein, Total 7.8 g/dL (6.4-8.2); Sodium Level 134 mmol/L (136-145); Triglycerides 140 mg/dL; Very Low Density Lipoprotein 28 mg/dL (5-40)
== END | disposition home or self-care (01) ==
LOC: MTLAB 10:14
PROVIDERS: PCP Family Medicine; Referring Provider Family Medicine; Visit Provider Family Medicine
DX: E11.9 Type 2 diabetes mellitus without complications (principal)
CPT/HCPCS: 36415; 80048; 80061; 80076; 82043; 82570

== ENCOUNTER → 2022-04-30 | Outpatient (CLI) | payer MEDICARE, OTHER, SELFPAY ==
--- NOTE | 2022-04-30 08:50 | BI_ITS ---
MAMMOGRAPHY - BILATERAL SCREENING REASON FOR EXAM: Female, 71 years old. Routine annual screening examination. PERTINENT HISTORY: Personal history of breast cancer. Prior right lumpectomy with radiation treatment. TECHNIQUE: Digital bilateral breast berry (3D mammographic acquisition) in the CC and MLO projections. 2-D mediolateral oblique (MLO) and craniocaudad (CC) views of both breasts were obtained. CAD: Full Field Digital Mammography with Computer Added Detection was performed. COMPARISON: Comparison is made with prior study 10/17/2020. FINDINGS: Breast Composition: There are scattered areas of fibroglandular density. There are no dominant masses or suspicious calcifications. The patient is status post lumpectomy in the deep slightly medial aspect of the right breast with resultant postoperative scarring and architectural distortion. Dystrophic calcifications are seen. There has been no change. No other significant abnormalities are identified. There has been no significant change since the prior study. BI/SCRN MAMM (CAD)W/BERRY BILAT IMPRESSION: Stable bilateral screening mammogram. Yearly follow-up mammogram recommended. (A) ASSESSMENT CATEGORY: BIRADS Category 2: Benign. A letter regarding these results will be sent to the patient by the facility within 30 days. Approximately 10% of breast cancers are not detected by mammography. A normal mammogram should not delay biopsy of a clinically suspicious abnormality. [id number] Electronically Signed: Michael Atkins MD at 10:38 EST ,
== END | disposition home or self-care (01) ==
LOC: OPBI 08:49
PROVIDERS: PCP Family Medicine; Visit Provider Family Medicine
DX: Z12.31 Encounter for screening mammogram for malignant neoplasm of breast (principal)
CPT/HCPCS: 77063; 77067

== ENCOUNTER → 2022-07-14 | Outpatient (CLI) | payer MEDICARE, OTHER, SELFPAY ==
[2022-07-14 12:42] LABS: Microalbumin,Random Urine 49.2 mg/L (NO RANGE EST.); Microalbumin:Creatinine Ratio 69.3 mg/g CRE (<30 mg/g CRE)
[2022-07-14 12:46] LABS: AST(SGOT) 20 U/L (15-37); Alanine Aminotransfer ALT/SGPT 24 U/L (13-56); Albumin, Serum 3.8 g/dL (3.2-5.0); Alkaline Phosphatase 73 U/L (45-117); Anion Gap 10 (5-15); BUN 15 mg/dL (7-18); BUN/Creat Ratio 20.6 RATIO (10-20); Bilirubin, Direct 0.08 mg/dL (0.00-0.30); Calcium,Total 9.3 mg/dL (8.5-10.1); Chloride 104 mmol/L (98-107); Cholesterol 257 mg/dL (200); Creatinine, Serum 0.73 mg/dL (0.55-1.02); EST Glomerular Filtration Rate 84 mL/min (>60); Est Glom Filt Rate - Afr Amer 102 mL/min (>60); Globulin 3.9 g/dL (2.2-4.2); Glucose 228 mg/dL (74-106); High Density Lipoprotein 46 mg/dL; Potassium 3.7 mmol/L (3.5-5.1); Protein, Total 7.7 g/dL (6.4-8.2); Sodium Level 138 mmol/L (136-145); Triglycerides 198 mg/dL; Very Low Density Lipoprotein 40 mg/dL (5-40)
== END | disposition home or self-care (01) ==
LOC: MFPLAB 10:33
PROVIDERS: PCP Family Medicine; Referring Provider Family Medicine; Visit Provider Family Medicine
DX: E11.9 Type 2 diabetes mellitus without complications (principal)
CPT/HCPCS: 36415; 80048; 80061; 80076; 82043; 82570

== ENCOUNTER → 2023-06-21 | Outpatient (CLI) | payer MEDICARE, OTHER, SELFPAY ==
--- NOTE | 2023-06-21 10:08 | BI_ITS ---
MAMMOGRAPHY - BILATERAL SCREENING REASON FOR EXAM: Female, 72 years old. Routine annual screening examination. PERTINENT HISTORY: Personal history of breast cancer. Prior right lumpectomy with radiation treatment. TECHNIQUE: Digital bilateral breast berry (3D mammographic acquisition) in the CC and MLO projections. 2-D mediolateral oblique (MLO) and craniocaudad (CC) views of both breasts were obtained. CAD: Full Field Digital Mammography with Computer Added Detection was performed. COMPARISON: Comparison is made with prior study dated April 30, 2022 and October 17, 2020. FINDINGS: Breast Composition: There are scattered areas of fibroglandular density. There are no dominant masses or suspicious calcifications. Once again, the patient status post lumpectomy and this likely medial deep aspect of the right breast with resultant postoperative scarring and architectural distortion. Dystrophic calcifications are seen at the operative site. No other significant abnormalities are identified. There has been no significant change since the prior study. BI/SCRN MAMM (CAD)W/BERRY BILAT IMPRESSION: Stable bilateral screening mammogram. Yearly follow-up mammogram recommended. (A) ASSESSMENT CATEGORY: BIRADS Category 2: Benign. A letter regarding these results will be sent to the patient by the facility within 30 days. Approximately 10% of breast cancers are not detected by mammography. A normal mammogram should not delay biopsy of a clinically suspicious abnormality. [id number] Electronically Signed: Michael Atkins MD at 11:23 EST ,
--- OUTSIDE RECORDS SUMMARY | 2023-06-21 10:42 | XMS RPT_ITS | CCD ---
Author Name Unknown Address [address] [place] [address] Organization [facility] Care Team Providers Care Customer Management Specialist Name Role Phone MISTY ADRIENNE RENDON Unavailable Unavailable Problems Problem Classification Problem Date Documented Da te Episodic/Chronic Unclassified (1 source) Unknown / UNK(Unknown) Onset: 02-22-2017 Results Test Name Value Interpretation Reference Range Facil ity Encounters Encounter Date Encounter Type Care Provider Facility Start: 02-22-2017 End: 02-22-2017 Ambulatory ADRIENNE JULIETA JAY [facility] Summary Purpose Family History No Family History Records Found Advance Directives No Advanced Directives Records Found Additional Source Comments INFORMATION SOURCE (unrecogn ized section and content) FOR RECORDS PERTAINING TO PATIENTS WHO ARE OR HAVE BEEN ENROLLED IN A CHEMICAL DEPENDENCY/SUBSTANCEABUSE PROGRAM, SOME INFORMATION MAY BE OMITTED. This clinical summary was aggregated from multiple sources. Caution should be exercised in using it in the provision of clinical care. This summary normalizes information from multiple sources, and as a consequence, information in this document may materially change the coding, format and clinical context of patient data. In addition, data may be omitted in some cases. CLINICAL DECISIONS SHOULD BE BASED ON THE PRIMARY CLINICAL RECORDS. [employer] provides no warranty or guarantee of the accuracy or completeness of information in this document.
== END | disposition home or self-care (01) ==
LOC: OPBI 10:08
PROVIDERS: PCP Family Medicine; Referring Provider Family Medicine; Visit Provider Family Medicine
DX: Z12.31 Encounter for screening mammogram for malignant neoplasm of breast (principal)
CPT/HCPCS: 77063; 77067

== ENCOUNTER → 2023-12-22 | Outpatient (CLI) | payer MEDICARE, OTHER, SELFPAY ==
[2023-12-22 12:54] LABS: AST(SGOT) 26 U/L (15-37); Alanine Aminotransfer ALT/SGPT 30 U/L (13-56); Albumin, Serum 3.6 g/dL (3.2-5.0); Alkaline Phosphatase 63 U/L (45-117); Anion Gap 8 (5-15); BUN 15 mg/dL (7-18); Calcium,Total 9.4 mg/dL (8.5-10.1); Chloride 103 mmol/L (98-107); Cholesterol 211 mg/dL (200); Creatinine, Serum 0.94 mg/dL (0.55-1.02); EST Glomerular Filtration Rate 62 mL/min (>60); Est Glom Filt Rate - Afr Amer 75 mL/min (>60); Globulin 4.4 g/dL (2.2-4.2); Glucose 116 mg/dL (74-106); High Density Lipoprotein 38 mg/dL; Sodium Level 136 mmol/L (136-145); Triglycerides 241 mg/dL; Very Low Density Lipoprotein 48 mg/dL (5-40)
[2023-12-22 12:58] LABS: Protein, Urine (Random) 11.2 mg/dL (<11.9); Protein:Creat Ratio 65 mg/g CRE (0-200)
== END | disposition home or self-care (01) ==
PROVIDERS: PCP Family Medicine; Referring Provider Family Medicine; Visit Provider Family Medicine
DX: E11.9 Type 2 diabetes mellitus without complications (principal)
CPT/HCPCS: 36415; 80048; 80061; 80076; 82570; 84156; 84443

== ENCOUNTER → 2024-08-07 | Outpatient (CLI) | payer MEDICARE, OTHER, SELFPAY ==
[2024-08-07 15:50] LABS: Microalbumin,Random Urine 38.5 mg/L (NO RANGE EST.)
[2024-08-07 23:37] LABS: Cholesterol 176 mg/dL (<=200); High Density Lipoprotein 45 mg/dL; Low Density Lipoprotein Calc. 91 mg/dL; Triglycerides 198 mg/dL; Very Low Density Lipoprotein 40 mg/dL (5-40); Vitamin D,25 Hydroxy 26.8 ng/mL (30-100); cholesterol:hdl ratio screen 3.89
[2024-08-07 23:42] LABS: ALB/GLOB Ratio 1.3 RATIO (0.9-2.4); AST(SGOT) 36 U/L (<=31); Alanine Aminotransfer ALT/SGPT 27 U/L (<=34); Albumin, Serum 4.4 g/dL (3.4-4.8); Alkaline Phosphatase 68 U/L (35-104); Anion Gap 12 (5-15); BUN 16 mg/dL (4-19); BUN/Creat Ratio 18.1 RATIO (10-20); Calcium,Total 9.8 mg/dL (7.6-11.0); Carbon Dioxide 23.2 mmol/L (21.0-32.0); Chloride 103 mmol/L (98-108); Creatinine, Serum 0.86 mg/dL (0.70-1.20); EST Glomerular Filtration Rate 72 (>60); Globulin 3.3 g/dL (2.2-4.2); Glucose 129 mg/dL (70-99); Potassium 4.3 mmol/L (3.3-5.1); Protein, Total 7.7 g/dL (5.9-8.4); Sodium Level 139 mmol/L (133-145); Total Bilirubin 0.36 mg/dL (0.00-1.30)
[2024-11-02 07:57] LABS: Microalbumin:Creatinine Ratio 24.2 mg/g CRE
== END | disposition home or self-care (01) ==
LOC: MFPLAB 10:47
PROVIDERS: PCP Family Medicine; Visit Provider Nurse Practitioner Family
DX: E11.29 Type 2 diabetes mellitus with other diabetic kidney complication (principal); Z79.4 Long term (current) use of insulin; R80.9 Proteinuria, unspecified; E55.9 Vitamin D deficiency, unspecified
CPT/HCPCS: 36415; 80053; 80061; 82043; 82306; 82570; 84443

== ENCOUNTER → 2024-08-07 | Outpatient (CLI) | payer MEDICARE, OTHER, SELFPAY ==
--- NOTE | 2024-08-07 11:46 | BI_ITS ---
EXAM: SCRN MAMM (CAD)W/BERRY BILAT 08/07/2024 CLINICAL HISTORY: F, Age 73 y/o, SCREENING. Personal history of right breast cancer which was diagnosed at the age of 44. She had a lumpectomy with radiation therapy. TECHNIQUE: Bilateral Diagnostic digital breast tomosynthesis with 2D and 3D images. Computer aided detection. COMPARISON: No prior films are available for comparison. If they are made available for review, an addendum will be dictated. FINDINGS: TISSUE DENSITY: The breast tissue is composed of scattered area of fibroglandular density. Bilateral Breast Mammographic Findings: Architectural distortion, increased density, dystrophic type calcifications and surgical clips are seen in the superior aspect of the right breast at the post lumpectomy and post radiation site. Benign round calcifications are seen in the breast. There is no mammographic abnormality seen in the right breast to suggest new or recurrent malignancy. Benign round microcalcifications are seen in the left breast. No suspicious masses, suspicious clustered microcalcifications, architectural distortion or secondary sign of malignancy is identified in the left breast. BI/SCRN MAMM (CAD)W/BERRY BILAT IMPRESSION: Right Breast: BIRADS 2 BENIGN FINDING. Left Breast: BIRADS 2 BENIGN FINDING. OVERALL FINAL ASSESSMENT: BIRADS 2 BENIGN FINDING. RECOMMENDATION: Routine annual follow-up in 1 Year A letter with findings and recommendations will be mailed to the patient. Reading Location: [id number]
== END | disposition home or self-care (01) ==
PROVIDERS: PCP Family Medicine; Referring Provider Family Medicine; Visit Provider Family Medicine
DX: Z12.31 Encounter for screening mammogram for malignant neoplasm of breast (principal)
CPT/HCPCS: 77063; 77067

== ENCOUNTER → 2024-09-21 | Outpatient (CLI) | payer MEDICARE, OTHER, SELFPAY ==
--- NOTE | 2024-09-21 12:37 | STRESSREP ---
Stress Test Report Pharmacologic myocardial perfusion stress test. 74-year-old lady with a history of coronary artery disease Resting EKG demonstrates sinus rhythm with a rate of 73 bpm. Resting blood pressure is 128/70 mmHg. 0.4 mg of regadenoson was infused per usual protocol followed by rapid intravenous saline flush injection. Continuous EKG monitoring was performed. The maximum heart rate was 100 bpm which was 67% of max impacted heart rate the maximum workload was 1 metabolic equivalent. At rest there were no ST or T wave changes noted to suggest ischemia and at peak infusion nonspecific ST changes were noted which did not meet the criteria for ischemia. No clinical angina is noted. The final blood pressure was 120/60 mmHg. Myocardial perfusion protocol. 11.5 mCi of technetium 99m sestamibi was injected at rest. 0.4 mg of regadenoson was infused per usual protocol. At peak infusion 33.8 mCi of technetium 99m sestamibi was injected stress images were obtained stress and rest images were reconstructed and compared in the short axis vertical long and horizontal long axis. Gated images were also obtained. Perfusion SPECT analysis: Review of the stress images demonstrate normal uptake of tracer noted in all areas of the myocardium. The resting images similar demonstrated normal uptake of tracer noted in all areas of the myocardium. No areas of reversibility are noted to suggest ischemia and no previous infarct is noted. Gated SPECT analysis: The gated ejection fraction is 85%. Conclusion: Normal pharmacologic myocardial perfusion stress test. Preserved ejection fraction.
== END | disposition home or self-care (01) ==
LOC: CVS 07:04
PROVIDERS: PCP Family Medicine; Referring Provider Nurse Practitioner Gerontology; Visit Provider Nurse Practitioner Gerontology
DX: I25.10 Atherosclerotic heart disease of native coronary artery without angina pectoris (principal); Z95.5 Presence of coronary angioplasty implant and graft
CPT/HCPCS: 78452; 93017; A9500; A4216; J2785

== ENCOUNTER → 2024-10-24 | Outpatient (CLI) | payer MEDICARE, OTHER, SELFPAY ==
[2024-10-24 17:25] LABS: Magnesium 2.2 mg/dL (1.5-2.2); Vitamin D,25 Hydroxy 19.5 ng/mL (30-100)
== END | disposition home or self-care (01) ==
LOC: VSLAB 15:17
PROVIDERS: PCP Nurse Practitioner Family; Visit Provider Nurse Practitioner Family
DX: I10 Essential (primary) hypertension (principal); I25.89 Other forms of chronic ischemic heart disease; R53.83 Other fatigue; E55.9 Vitamin D deficiency, unspecified; G25.81 Restless legs syndrome
CPT/HCPCS: 36415; 82306; 83735; 84443

== ENCOUNTER → 2025-01-19 | Outpatient (CLI) | payer MEDICARE, OTHER, SELFPAY ==
--- NOTE | 2025-01-19 15:47 | RAD_ITS ---
PROCEDURE: L/S SPINE MIN 4 VIEWS 01/19/2025 REASON FOR EXAM: LOW BACK PAIN TECHNIQUE: Procedure Code: [id number] Modality: DX Procedure: L/S SPINE MIN 4 VIEWS FINDINGS: No evidence of acute fracture or dislocation. Levoscoliosis. Severe degenerative changes of visualized spine. Vertebral body heights are maintained. RAD/L/S Spine Min 4 Views IMPRESSION: Spondylosis. Levoscoliosis. Reading Location: [id number]
== END | disposition home or self-care (01) ==
PROVIDERS: PCP Nurse Practitioner Family; Referring Provider Family Medicine; Visit Provider Family Medicine
DX: M54.50 Low back pain, unspecified (principal)
CPT/HCPCS: 72110